=== PATIENT | male | born 1955 | race Caucasian/White ===

== ENCOUNTER → 2016-04-04 | Outpatient (CLI) | payer OTHER ==
[~2016-04-04] MED LIST: HYZAAR 50-12.1 UDTAB PO; NORCO 325 MG-51 TAB PO; PRILOTC PO; SYNTHROID0.05 MG/TA PO; ZYLOPRIM 300MG300 MG PO
== END ==
LOC: COL.RAD 09:45
DX: K76.0 Fatty (change of) liver, not elsewhere classified (principal); R79.89 Other specified abnormal findings of blood chemistry; M54.6 Pain in thoracic spine

== ENCOUNTER → 2016-04-14 | Outpatient (CLI) | payer OTHER | LOC: COL.RAD 10:18 | DX: R10.11 Right upper quadrant pain (principal); K82.8 Other specified diseases of gallbladder | CPT/HCPCS: A9537; J2805 ==

== ENCOUNTER → 2016-08-03 | Day surgery (SDC) | payer OTHER ==
[~2016-08-03] VITALS: Ht 175.3 cm; Wt 78.1 kg
[2016-08-03] VITALS (9 sets, daily range): BP systolic 123–144; BP diastolic 72–91; PULSE 53–80; TEMP 97.8–98
== END ==
LOC: SDCO 05:43 → JCC 09-07 19:49 → SDCO 09-07 19:49
DX: K40.90 Unilateral inguinal hernia, without obstruction or gangrene, not specified as recurrent (principal); I10 Essential (primary) hypertension; E05.90 Thyrotoxicosis, unspecified without thyrotoxic crisis or storm; N40.0 Benign prostatic hyperplasia without lower urinary tract symptoms; I49.9 Cardiac arrhythmia, unspecified
CPT/HCPCS: A4315; C1781; J0690; J1100; J1885; J2405; J2704; J7120

== ENCOUNTER → 2017-12-12 | Outpatient (CLI) | payer OTHER ==
[~2017-12-12] VITALS: Ht 175.4 cm; Wt 79.1 kg
[~2017-12-12] MED LIST changes: +B COMPLEX #11 TAB PO; +COZAAR 50MG50 MG/TAB PO; +MULTIPLE VITAMI1 CAP PO; +SYNTHROID0.075 MG/T PO
[2017-12-12 06:46] VITALS: BP 152/93; PULSE 76
[2017-12-12 07:46] VITALS: BP 146/91; PULSE 67
[2017-12-12 08:25] VITALS: BP 134/82; PULSE 98
[2017-12-12 08:27] VITALS: BP 136/81; PULSE 89
[2017-12-12 08:29] VITALS: BP 139/88; PULSE 89
== END ==
LOC: COL.CARD 06:24
DX: M54.6 Pain in thoracic spine (principal)
CPT/HCPCS: A9502; J2785

== ENCOUNTER 2018-01-02 10:12 | Day surgery (SDC) | payer OTHER ==
[2018-01-02] VITALS (11 sets, daily range): BP systolic 136–158; BP diastolic 88–107; PULSE 57–79; TEMP 98.2
[~2018-01-02] VITALS: Ht 175.5 cm; Wt 80.5 kg
[2018-01-02] MEDS ORDERED: COREG 3.123.125 MG/T PO (10:19)
[2018-01-02] MEDS ORDERED: IMDUR 30MG30 MG/TAB PO (10:20)
[2018-01-02] MEDS ORDERED: LIPITOR 40MG TA40 MG PO (10:21)
[2018-01-02] MEDS ORDERED: ASPIRIN E.C. 8181 MG PO (10:21)
[2018-01-02] MEDS ORDERED: ELOCON45GOINT TOP (10:23)
[2018-01-02] MEDS ORDERED: NITROSTAT0.4 MG/TAB SL (10:24)
[2018-01-02 11:16] LABS: HEMATOCRIT 43.4 % (42.0-52.0); HEMOGLOBIN 14.7 g/dl (13.5-18.0); MEAN CELL VOLUME 98 fl (80.0-100.0); MEAN CORPUSCULAR HEMOGLOBIN 33 pg (27.0-31.0); MEAN CORPUSCULAR HGB CONC 34 g/dl (33.0-37.0); MEAN PLATELET VOLUME 10.4 fl (7.4-10.4); PLATELET COUNT 226 K/mm3 (130-400); RED BLOOD COUNT 4.43 M/mm3 (4.20-5.60)
[2018-01-02 11:19] LABS: PROTHROMBIN TIME 10.9 SECONDS (9.7-12.8)
[2018-01-02 11:33] LABS: CALCIUM 8.9 mg/dL (8.4-10.2); CREATININE, serum 0.95 mg/dL (0.66-1.25); POTASSIUM 4.1 mmol/L (3.4-5.0)
== END 2018-01-02 17:04 | disposition home or self-care (01) ==
LOC: COL.CAR 10:12
PROVIDERS: Internal Medicine Cardiovascular Disease
DX: I25.10 Atherosclerotic heart disease of native coronary artery without angina pectoris (principal); I11.0 Hypertensive heart disease with heart failure; I50.9 Heart failure, unspecified; E78.2 Mixed hyperlipidemia; Z79.899 Other long term (current) drug therapy; Z79.82 Long term (current) use of aspirin
CPT/HCPCS: J1644; J2250; J3010; Q9967

== ENCOUNTER 2018-09-21 21:10 | Emergency (ER) | payer MEDICARE, OTHER ==
[~2018-09-21] VITALS: Ht 172.7 cm; Wt 81.8 kg
[~2018-09-21 21:10] MED LIST changes: +ASPIRIN E.C. 8181 MG PO; +COREG 3.123.125 MG/T PO; +ELOCON45GOINT TOP; +IMDUR 30MG30 MG/TAB PO; +LIPITOR 40MG TA40 MG PO; +NITROSTAT0.4 MG/TAB SL
[2018-09-21 21:22] VITALS: TEMP 97.1
[2018-09-21 21:41] LABS: BASO % 0.6 % (0.0-2.0); EOS % 0.4 % (0-4.0); GRAN # 4.9 (1.4-6.5); GRAN % 72.1 % (42.2-75.2); HEMOGLOBIN 12.3 g/dl (13.5-18.0); LYMPH # 1.1 (1.2-3.4); LYMPH % 15.6 % (20.0-51.0); MEAN CELL VOLUME 95 fl (80.0-100.0); MEAN CORPUSCULAR HEMOGLOBIN 33 pg (27.0-31.0); MEAN CORPUSCULAR HGB CONC 35 g/dl (33.0-37.0); MEAN PLATELET VOLUME 10.1 fl (7.4-10.4); MONO # 0.7 (0.1-0.6); MONO % 10.6 % (1.7-9.3); PLATELET COUNT 223 K/mm3 (130-400); RED BLOOD COUNT 3.74 M/mm3 (4.20-5.60); REDCELL DISTRIBUTION WIDTH-CV 12.8 % (11.5-14.5)
[2018-09-21 21:42] LABS: HEMATOCRIT 35.5 % (42.0-52.0)
[2018-09-21 21:48] LABS: ALANINE AMINOTRANSFERASE 242 U/L (21-72); ALBUMIN 4.4 gm/dL (3.5-5.0); ALKALINE PHOSPHATASE 155 U/L (50-136); ANION GAP 11 mmol/L (7-16); AST,SGOT 446 U/L (15-37); BILIRUBIN,TOTAL 1.8 mg/dL (0.0-1.0); BLOOD UREA NITROGEN 19 mg/dL (9-20); CALCIUM 9.5 mg/dL (8.4-10.2); CARBON DIOXIDE 20 mmol/L (22-30); CHLORIDE 108 mmol/L (98-107); CREATININE, serum 1.29 (0.66-1.25); GLUCOSE 112 mg/dL (74-106); LIPASE 260 U/L (23-300); POTASSIUM 4.4 mmol/L (3.4-5.0); SODIUM 140 mmol/L (137-145); TOTAL PROTEIN 8.1 gm/dL (6.4-8.2)
[2018-09-21 22:00] LABS: TROPONIN-I < 0.012 ng/mL (0.000-0.035)
[2018-09-22] MEDS ORDERED: NORCO 325 MG-51 TAB PO (01:43)
[2018-09-22 02:13] VITALS: BP 128/75; PULSE 96
== END 2018-09-22 02:00 | disposition home or self-care (01) ==
LOC: COL.ER 21:10
PROVIDERS: Emergency Medicine
DX: K70.10 Alcoholic hepatitis without ascites (principal); I25.10 Atherosclerotic heart disease of native coronary artery without angina pectoris; Z90.49 Acquired absence of other specified parts of digestive tract; Z79.82 Long term (current) use of aspirin
CPT/HCPCS: C9113; J3010; J7030; Q9967

== ENCOUNTER 2019-04-15 14:58 | Outpatient (RCR) | payer MEDICARE, OTHER ==
[2019-04-15] MEDS ORDERED: INSPRA25 MG PO (17:07)
[2019-04-15] MEDS ORDERED: PROTONIX 40MG T40 MG PO (19:15)
[2019-04-15] MEDS ORDERED: COREG 25MG25 MG/TAB PO (19:16)
[2019-04-15] MEDS ORDERED: PLAVIX 75MG TAB75 MG PO (19:17)
[2019-04-15] MEDS ORDERED: ALDACTONE 25MG25 M1 PO (19:17)
[2019-04-15] MEDS ORDERED: IMODIUM A-D2 MG PO (21:26)
[2019-04-17] MEDS ORDERED: IMDUR 60MG60 MG/TAB PO (14:25)
[2019-04-17] MEDS ORDERED: RANEXA 500MG T500 MG PO (14:25)
== END 2019-05-06 | disposition home or self-care (01) ==
LOC: COL.CR
DX: Z48.812 Encounter for surgical aftercare following surgery on the circulatory system (principal); Z95.5 Presence of coronary angioplasty implant and graft

== ENCOUNTER 2019-04-15 16:14 | Observation (INO) | payer MEDICARE, OTHER ==
[~2019-04-15] VITALS: Ht 172.7 cm; Wt 85.4 kg
[2019-04-15 16:43] LABS: BASO % 0.5 % (0.0-2.0); EOS % 0.3 % (0-4.0); GRAN # 5.4 (1.4-6.5); GRAN % 73.9 % (42.2-75.2); HEMATOCRIT 37.7 % (42.0-52.0); HEMOGLOBIN 12.5 g/dl (13.5-18.0); LYMPH % 13.6 % (20.0-51.0); MEAN CELL VOLUME 96 fl (80.0-100.0); MEAN CORPUSCULAR HEMOGLOBIN 32 pg (27.0-31.0); MEAN CORPUSCULAR HGB CONC 33 g/dl (33.0-37.0); MEAN PLATELET VOLUME 10.2 fl (7.4-10.4); MONO # 0.8 (0.1-0.6); MONO % 10.7 % (1.7-9.3); PLATELET COUNT 256 K/mm3 (130-400); RED BLOOD COUNT 3.94 M/mm3 (4.20-5.60); REDCELL DISTRIBUTION WIDTH-CV 12.4 % (11.5-14.5)
[2019-04-15 16:51] LABS: PARTIAL THROMBOPLASTIN TIME 31.1 SECONDS (26.0-37.0)
[2019-04-15 16:57] LABS: ALANINE AMINOTRANSFERASE 179 U/L (21-72); ALBUMIN 4.4 gm/dL (3.5-5.0); ALKALINE PHOSPHATASE 188 U/L (50-136); ANION GAP 10 mmol/L (7-16); AST,SGOT 261 U/L (15-37); BILIRUBIN,TOTAL 2.2 mg/dL (0.0-1.0); BLOOD UREA NITROGEN 17 mg/dL (9-20); CALCIUM 9.3 mg/dL (8.4-10.2); CARBON DIOXIDE 25 mmol/L (22-30); CHLORIDE 105 mmol/L (98-107); CREATININE, serum 1.03 (0.66-1.25); GLUCOSE 135 mg/dL (74-106); POTASSIUM 4.1 mmol/L (3.4-5.0); SODIUM 139 mmol/L (137-145); TOTAL PROTEIN 7.7 gm/dL (6.4-8.2)
[2019-04-15] MEDS ORDERED: INSPRA25 MG PO (17:07)
[2019-04-15 17:09] LABS: TROPONIN-I < 0.012 ng/mL (0.000-0.035)
[2019-04-15] MEDS ORDERED: PROTONIX 40MG T40 MG PO (19:15)
[2019-04-15] MEDS ORDERED: COREG 25MG25 MG/TAB PO (19:16)
[2019-04-15] MEDS ORDERED: ALDACTONE 25MG25 M1 PO (19:17)
[2019-04-15] MEDS ORDERED: PLAVIX 75MG TAB75 MG PO (19:17)
[2019-04-15 20:45] VITALS: BP 111/68; PULSE 64; TEMP 98.2
[2019-04-15 21:09] LABS: ALCOHOL(ethanol),MEDICAL < 10 mg/dL
[2019-04-15] MEDS ORDERED: IMODIUM A-D2 MG PO (21:26)
--- NOTE | 2019-04-15 21:30 | NUR ---
Admitted to medical floor from ER with DX chest pain-- states pain is much improved- states still has just a very little pressure /ache feeling mid chest 04/05- VSS, heparin drip at 10cc/hr,,IV fluids at 30CC/HR- Will call for assistance up if needed- VSS, NPO after MN- pt aware
[2019-04-15 23:24] VITALS: BP 101/62; PULSE 72; TEMP 98
[2019-04-16] VITALS (7 sets, daily range): BP systolic 101–130; BP diastolic 57–70; PULSE 54–69; TEMP 97.3–98.6
--- NOTE | 2019-04-16 02:00 | NUR ---
Did get hte doses of INspra from pharmacy- called Zay DU about giving it now since its late or waiting till the AM-- states ok to wait till the morning dose-
--- NOTE | 2019-04-16 05:00 | NUR ---
Quiet night- was given Morphine IV around 0340 for mid chest pain 06/03-not really pain he states just uncomfortable - Morphine was effective-has been sleeping since- Heparin drip continues at 10cc/hr, NPO
[2019-04-16 06:50] LABS: BASO % 0.5 % (0.0-2.0); EOS % 0.5 % (0-4.0); GRAN % 69.3 % (42.2-75.2); HEMATOCRIT 34.1 % (42.0-52.0); HEMOGLOBIN 11.2 g/dl (13.5-18.0); LYMPH % 16.5 % (20.0-51.0); MEAN CELL VOLUME 97 fl (80.0-100.0); MEAN CORPUSCULAR HEMOGLOBIN 32 pg (27.0-31.0); MEAN CORPUSCULAR HGB CONC 33 g/dl (33.0-37.0); MEAN PLATELET VOLUME 10.6 fl (7.4-10.4); MONO # 0.7 (0.1-0.6); MONO % 12.2 % (1.7-9.3); PLATELET COUNT 207 K/mm3 (130-400); REDCELL DISTRIBUTION WIDTH-CV 12.4 % (11.5-14.5)
[2019-04-16 06:59] LABS: BILIRUBIN,TOTAL 3.2 mg/dL (0.0-1.0); CALCIUM 8.8 mg/dL (8.4-10.2); CHOLESTEROL RISK RATIO 2.1; CREATININE, serum 0.87 (0.66-1.25); POTASSIUM 3.6 mmol/L (3.4-5.0); TOTAL PROTEIN 7.1 gm/dL (6.4-8.2)
[2019-04-16 11:12] LABS: BILIRUBIN,DIRECT 2.3 mg/dL (0.0-0.4)
--- NOTE | 2019-04-16 11:44 | NUR ---
SEE MERGE FOR MEDICATION ADMINISTRATION TIMES AND INTRA AND POST SEDATION ASSESSMENTS.
--- NOTE | 2019-04-16 12:28 | NUR ---
bedside hand off report to lamont fowler. TR band to R wrist. hemostasis maintained. TR band with 12cc in the band. Radial pulse 2+, cap refill less than 3 seconds. at bedside with patient at this time. pt is alert and oriented.
--- NOTE | 2019-04-16 14:37 | NUR ---
REED met with the patient, his ex- (Chhaya), and son (Ihsan, ph#[phone]) to discuss discharge plan. The patient lives alone in [place]. He reports independence with ADLs and does not have any DME. The patient's PCP is Dr. Que Katz and he receives his medications at the [facility] in [facility]. He reports no difficulties obtaining his meds. The patient does not have advanced directives completed, but he was interested in obtaining a form for DPOA-HC. REED provided. The patient plans to return home upon discharge. No additional needs at this time.
--- NOTE | 2019-04-16 16:31 | NUR ---
Patient returned from procedure, is resting in bed, TR band in place and inflated. There is no leakage noted under band. Is drowsy but alert and oriented, is at bedside. Denies pain. Does wish for vital sign equipment be removed, explained to patient that it was necessary to keep equipment in place unitl post operative time was complete. He agreed.
--- NOTE | 2019-04-16 18:40 | NUR ---
Patient has complained of upper abdomnial pain, did speak with Dr. Elkins regarding this and he spoke with patient regarding pain management and patient declined to make a change. Did give dose of protonix as directed by Dr. Elkins. Dr. Elkins is to get in touch with GI for eval.
--- NOTE | 2019-04-16 21:00 | NUR ---
Resting in bed. Assessment complete. Right lower lobe crackles otherwise clear. Heart sounds normal. Bowels active x4- ABD firm and round. Pulses strong throughout. No edema noted. INT left AC without complications. IV right AC infusing without complications-Patient has order for NS and 1/2 NS- attempted to contact Meredith CHNADRA for order clarification, will call back. Patient rating pain 3/10 at this time in ABD. Requested PRN morphine. Provided to patient. Denies other needs. Call light in reach.
[2019-04-17] VITALS: BP 125/68; PULSE 79; TEMP 98.1
--- NOTE | 2019-04-17 | NUR ---
Patient had orders for NS at 30ml/hr and 1/2 NS at 100ml/hr. Spoke with Meredith CHANDRA for order clarification. Per Meredith discontinue both. Patient to saline lock at this time.
--- NOTE | 2019-04-17 00:47 | NUR ---
Patient ambulating in hallway. Refused nitro pace at this time. Reports "I am feeling pretty good, and I dont think this has anything to do with my heart." Educated patient to report any chest pain or change in symptoms. Denies other needs at this time. Call light in reach.
--- NOTE | 2019-04-17 00:57 | NUR ---
Patient had 900 ml of dark yellow, clear urine at this time.
--- NOTE | 2019-04-17 02:28 | NUR ---
Resting in bed asleep. Call light in reach.
[2019-04-17 04:00] VITALS: BP 133/73; PULSE 80; TEMP 97.8
--- NOTE | 2019-04-17 04:56 | NUR ---
Resting in bed. Denies pain at this time. Call light in reach.
--- NOTE | 2019-04-17 06:22 | NUR ---
Patient required x1 dose of morphine for pain. Otherwise uneventful night. Requesting to be discharged this AM as pain has resolved.
[2019-04-17 06:43] LABS: BASO % 0.6 % (0.0-2.0); EOS % 0.6 % (0-4.0); GRAN # 3.6 (1.4-6.5); GRAN % 69.4 % (42.2-75.2); HEMOGLOBIN 11.8 g/dl (13.5-18.0); LYMPH # 0.6 (1.2-3.4); MEAN CELL VOLUME 97 fl (80.0-100.0); MEAN CORPUSCULAR HEMOGLOBIN 32 pg (27.0-31.0); MEAN CORPUSCULAR HGB CONC 33 g/dl (33.0-37.0); MEAN PLATELET VOLUME 10.7 fl (7.4-10.4); MONO # 0.9 (0.1-0.6); MONO % 16.4 % (1.7-9.3); PLATELET COUNT 188 K/mm3 (130-400); RED BLOOD COUNT 3.67 M/mm3 (4.20-5.60); REDCELL DISTRIBUTION WIDTH-CV 12.4 % (11.5-14.5)
[2019-04-17 06:58] LABS: ALBUMIN 3.9 gm/dL (3.5-5.0); CALCIUM 8.6 mg/dL (8.4-10.2); CREATININE, serum 0.87 (0.66-1.25); POTASSIUM 3.6 mmol/L (3.4-5.0)
[2019-04-17 07:04] LABS: HEMATOCRIT 35.6 % (42.0-52.0)
--- NOTE | 2019-04-17 07:12 | NUR ---
Report given to ARLET Mccormack
[2019-04-17 07:26] VITALS: BP 120/69; PULSE 75; TEMP 99.1
[2019-04-17 10:23] LABS: PROTHROMBIN TIME 11.6 SECONDS (9.7-12.8)
[2019-04-17 11:07] VITALS: BP 103/60; PULSE 69; TEMP 99.1
[2019-04-17] MEDS ORDERED: IMDUR 60MG60 MG/TAB PO (14:25)
[2019-04-17] MEDS ORDERED: RANEXA 500MG T500 MG PO (14:25)
--- NOTE | 2019-04-17 18:06 | NUR ---
PATIENT DC TO HOME VIA PRIVATE VEHILCE ACCOMPANIED BY SON @ 1610. LEFT UNIT AMBULATORY. PRINTED DC INSTRUCTIONS TO INCLUDE FOLLOW UP, MEDICATIONS, HOSPITAL DIAGNOSIS REVIEWED WITH PATIENT. NO QUESTIONS OR CONCERNS AT END OF REVIEW
[2019-04-17 20:09] LABS: IRON,SERUM 49 ug/dL (35-150)
[2019-04-17 20:17] LABS: TOTAL IRON BINDING CAPACITY 292 ug/dL (261-462)
[2019-04-18 15:24] LABS: HEPATITIS B CORE AB,TOTAL Negative (()); HEPATITIS B SURFACE ANTIBODY <2.0 (()); HEPATITIS B SURFACE ANTIGEN Negative (Negative); HEPATITIS C VIRUS ANTIBODY Negative (Negative)
[2019-04-19 01:23] LABS: HEPATITIS AB (HAV) IGG INDEX 0.57 Index (<=1.00)
== END 2019-04-17 16:10 | disposition home or self-care (01) ==
LOC: COL.ER 16:14 → MEDICAL 19:36
PROVIDERS: Emergency Medicine; Internal Medicine Gastroenterology; Nurse Practitioner Family; ADMIT Internal Medicine
DX: I25.10 Atherosclerotic heart disease of native coronary artery without angina pectoris (principal); E78.5 Hyperlipidemia, unspecified; I11.0 Hypertensive heart disease with heart failure; I50.40 Unspecified combined systolic (congestive) and diastolic (congestive) heart failure; E03.9 Hypothyroidism, unspecified; E80.6 Other disorders of bilirubin metabolism; K86.9 Disease of pancreas, unspecified; K21.9 Gastro-esophageal reflux disease without esophagitis; D64.9 Anemia, unspecified; I25.2 Old myocardial infarction; I34.0 Nonrheumatic mitral (valve) insufficiency; Z95.5 Presence of coronary angioplasty implant and graft; Z79.82 Long term (current) use of aspirin; Z79.02 Long term (current) use of antithrombotics/antiplatelets; Z88.1 Allergy status to other antibiotic agents; Z90.49 Acquired absence of other specified parts of digestive tract; Z82.49 Family history of ischemic heart disease and other diseases of the circulatory system
CPT/HCPCS: C9113; G0378; J1644; J2250; J2270; J2405; J3010; J7030; Q9967

== ENCOUNTER → 2019-04-22 | Outpatient (CLI) | payer MEDICARE ==
[~2019-04-22] MED LIST changes: +ALDACTONE 25MG25 M1 PO; +COREG 25MG25 MG/TAB PO; +IMDUR 60MG60 MG/TAB PO; +IMODIUM A-D2 MG PO; +INSPRA25 MG PO; +PLAVIX 75MG TAB75 MG PO; +PROTONIX 40MG T40 MG PO; +RANEXA 500MG T500 MG PO
== END ==
LOC: COL.RAD 09:40
DX: K76.0 Fatty (change of) liver, not elsewhere classified (principal)

== ENCOUNTER 2019-05-06 15:25 | Outpatient (RCR) | payer MEDICARE | END 2019-05-08 05:59 | disposition home or self-care (01) | LOC: COL.CR 15:25 | DX: Z48.812 Encounter for surgical aftercare following surgery on the circulatory system (principal); Z95.5 Presence of coronary angioplasty implant and graft ==

== ENCOUNTER 2019-06-10 15:45 | Outpatient (RCR) | payer SELFPAY | END 2019-08-06 | disposition home or self-care (01) | LOC: COL.CR | DX: Z02.89 Encounter for other administrative examinations (principal) ==

== ENCOUNTER 2020-07-28 13:13 | Emergency (ER) | payer MEDICARE ==
[~2020-07-28] VITALS: Ht 172.7 cm; Wt 85.5 kg
[2020-07-28 13:28] VITALS: TEMP 98.6
[2020-07-28 14:04] LABS: HEMATOCRIT 39.2 % (42.0-52.0); HEMOGLOBIN 13.3 g/dl (13.5-18.0); MEAN CELL VOLUME 93 fl (80.0-100.0); MEAN CORPUSCULAR HEMOGLOBIN 31 pg (27.0-31.0); MEAN CORPUSCULAR HGB CONC 34 g/dl (33.0-37.0); MEAN PLATELET VOLUME 9.6 fl (7.4-10.4); PLATELET COUNT 300 K/mm3 (130-400); RED BLOOD COUNT 4.24 M/mm3 (4.20-5.60); REDCELL DISTRIBUTION WIDTH-CV 12.8 % (11.5-14.5)
[2020-07-28 14:05] LABS: COLLECTION METHOD CATHETER
[2020-07-28 14:13] LABS: ALANINE AMINOTRANSFERASE 518 U/L (4-49); ALBUMIN 4.5 gm/dL (3.5-5.0); ALKALINE PHOSPHATASE 616 U/L (50-136); ANION GAP 12 mmol/L (7-16); AST,SGOT 312 U/L (15-37); BILIRUBIN,TOTAL 6.4 mg/dL (0.0-1.0); BLOOD UREA NITROGEN 19 mg/dL (9-20); CALCIUM 9.4 mg/dL (8.4-10.2); CARBON DIOXIDE 21 mmol/L (22-30); CHLORIDE 105 mmol/L (98-107); CREATININE, serum 1.35 (0.66-1.25); GLUCOSE 116 mg/dL (74-106); LIPASE 86 U/L (23-300); POTASSIUM 3.9 mmol/L (3.4-5.0); SODIUM 138 mmol/L (137-145)
[2020-07-28 14:30] LABS: TROPONIN-I < 0.012 ng/mL (0.000-0.035)
[2020-07-28 14:32] LABS: MUCOUS Present /lpf; PH 5 (5-8); SQUAMOUS EPITHELIAL 0-2 /hpf; URINE APPEARANCE Hazy; URINE BACTERIA Rare /hpf; URINE BILIRUBIN Positive (NEGATIVE); URINE BLOOD Negative (NEGATIVE); URINE COLOR Amber; URINE GLUCOSE Negative (NEGATIVE); URINE KETONE Trace (NEGATIVE); URINE LEUKOCYTE ESTERASE Negative (NEGATIVE); URINE NITRATE Negative (NEGATIVE); URINE PROTEIN(semi-quant) 1+ (NEGATIVE); URINE RBC 0-2 /hpf; URINE UROBILINOGEN >=4.0 mg/dL (NEGATIVE)
[2020-07-28 14:58] LABS: BAND 33 % (0-10); LYMPHOCYTE 1 % (20.0-51.0); NEUTROPHILS 63 % (42.0-75.2)
[2020-07-28] MEDS ORDERED: COREG 25MG25 MG/TAB PO ×2 (15:12→15:13)
[2020-07-28] MEDS ORDERED: LIPITOR 40MG TA40 MG PO (15:12)
[2020-07-28] MEDS ORDERED: IMDUR 30MG30 MG/TAB PO (15:13)
[2020-07-28] MEDS ORDERED: ONE-A-DAY ESSE1 EACH PO (15:13)
[2020-07-28] MEDS ORDERED: NORCO 325 MG-51 TAB PO (15:14)
[2020-07-28 19:48] VITALS: BP 142/78; PULSE 115
== END 2020-07-28 19:50 | disposition short-term general hospital (02) ==
LOC: COL.ER 13:13
PROVIDERS: Emergency Medicine
DX: R79.89 Other specified abnormal findings of blood chemistry (principal); E80.6 Other disorders of bilirubin metabolism; K86.9 Disease of pancreas, unspecified; R10.84 Generalized abdominal pain; R00.0 Tachycardia, unspecified; I25.10 Atherosclerotic heart disease of native coronary artery without angina pectoris; I10 Essential (primary) hypertension; Z88.1 Allergy status to other antibiotic agents; Z90.49 Acquired absence of other specified parts of digestive tract; Z79.82 Long term (current) use of aspirin; Z79.02 Long term (current) use of antithrombotics/antiplatelets; Z85.07 Personal history of malignant neoplasm of pancreas; Z79.899 Other long term (current) drug therapy
CPT/HCPCS: J2543; J3370; J7030; J7050; Q9967

== ENCOUNTER 2020-09-02 09:36 | Day surgery (SDC) | payer MEDICARE ==
[~2020-09-02] VITALS: Ht 172.8 cm; Wt 77.1 kg
[2020-09-02] VITALS (9 sets, daily range): BP systolic 90–129; BP diastolic 61–76; PULSE 50–77; TEMP 63–77.1
[~2020-09-02 09:36] MED LIST changes: +ONE-A-DAY ESSE1 EACH PO
[2020-09-02 10:53] LABS: MEAN CELL VOLUME 93 fl (80.0-100.0); MEAN CORPUSCULAR HEMOGLOBIN 32 pg (27.0-31.0); MEAN CORPUSCULAR HGB CONC 34 g/dl (33.0-37.0); MEAN PLATELET VOLUME 10.8 fl (7.4-10.4); PLATELET COUNT 222 K/mm3 (130-400); REDCELL DISTRIBUTION WIDTH-CV 13.1 % (11.5-14.5)
[2020-09-02 10:59] LABS: HEMATOCRIT 35.2 % (42.0-52.0); INR 1.1 (0.8-3.0); PROTHROMBIN TIME 12.1 SECONDS (9.7-12.8)
[2020-09-02 11:01] LABS: CALCIUM 8.7 mg/dL (8.4-10.2); CREATININE, serum 0.91 (0.66-1.25); POTASSIUM 3.8 mmol/L (3.4-5.0)
[2020-09-02 11:02] LABS: PARTIAL THROMBOPLASTIN TIME 33.4 SECONDS (26.0-37.0)
[2020-09-02] MEDS ORDERED: B COMPLEX #11 TA1 PO (11:07)
--- NOTE | 2020-09-02 14:45 | NUR ---
pt to eu 15 via bed from cardiac cath lab technologist, awake and alert. Radial band on, site dry with no swelling. call light in reach, no c/o or concerns at this time
[2020-09-02] MEDS ORDERED: COREG 25MG25 MG/TAB PO (15:04)
[2020-09-02] MEDS ORDERED: ASPIRIN E.C. 8181 MG PO (15:05)
--- NOTE | 2020-09-02 15:45 | NUR ---
offered snack or sandwhich, declined at this time, takes water, no c/o or changes in assessment
--- NOTE | 2020-09-02 16:19 | NUR ---
reviewed discharge inst. with pt on care of site, precautions, activity, followup and changes in medication dosages of coreg with verbal understanding. sits up in bed, no requests or c/o
--- NOTE | 2020-09-02 16:50 | NUR ---
RELEASED 2CC OF AIR FROM BAND, NO BLEEDING NOTED
--- NOTE | 2020-09-02 17:25 | NUR ---
Dressing to right wrist observed clean,dry,and soft to touch.INt removed,catheter tip intact.
--- NOTE | 2020-09-02 17:30 | NUR ---
Pt escorted out via wheelchair by Mis Montenegro.
== END 2020-09-02 17:48 | disposition home or self-care (01) ==
LOC: COL.CAR 09:36
PROVIDERS: Internal Medicine Cardiovascular Disease
DX: I25.10 Atherosclerotic heart disease of native coronary artery without angina pectoris (principal); R94.39 Abnormal result of other cardiovascular function study
CPT/HCPCS: C1769; J1644; J2250; J3010; Q9967

== ENCOUNTER 2021-01-05 13:16 | Inpatient (IN) | payer MEDICARE ==
[~2021-01-05] VITALS: Ht 172.7 cm; Wt 87.8 kg
[2021-01-05] VITALS (23 sets, daily range): BP systolic 112; BP diastolic 68; PULSE 89; TEMP 97.9; O2SAT 88–92
[~2021-01-05 13:16] MED LIST changes: +B COMPLEX #11 TA1 PO
[2021-01-05 14:07] LABS: BASO # 0.1 K/mm3 (0.0-0.2); BASO % 0.5 % (0.0-2.0); GRAN # 8.1 K/mm3 (1.4-6.5); GRAN % 74.2 % (42.2-75.2); HEMOGLOBIN 11.8 g/dl (13.5-18.0); LYMPH # 1.3 K/mm3 (1.2-3.4); LYMPH % 12.2 % (20.0-51.0); MEAN CELL VOLUME 93 fl (80.0-100.0); MEAN CORPUSCULAR HEMOGLOBIN 31 pg (27.0-31.0); MEAN CORPUSCULAR HGB CONC 33 g/dl (33.0-37.0); MEAN PLATELET VOLUME 10.5 fl (7.4-10.4); MONO # 1.4 K/mm3 (0.1-0.6); MONO % 12.4 % (1.7-9.3); PLATELET COUNT 250 K/mm3 (130-400); RED BLOOD COUNT 3.81 M/mm3 (4.20-5.60); REDCELL DISTRIBUTION WIDTH-CV 14.2 % (11.5-14.5)
[2021-01-05 14:10] LABS: HEMATOCRIT 35.3 % (42.0-52.0)
[2021-01-05 14:26] LABS: ALBUMIN 3.5 gm/dL (3.4-4.8); BILIRUBIN,TOTAL 1.5 mg/dL (0.2-1.2); CALCIUM 9.2 mg/dL (8.4-10.2); CREATININE, serum 1.66 mg/dL (0.72-1.25); TOTAL PROTEIN 7.3 gm/dL (6.2-8.1)
[2021-01-05 17:30] LABS: ARTERIAL BLD GAS TCO2 CT 18.1; ARTERIAL BLOOD GAS BASE EXCESS -6.5 (-2-2); ARTERIAL BLOOD GAS HCO3 17.2 meq/L (22-26); ARTERIAL BLOOD GAS PO2 49.2 mmHg (80-100); ARTERIAL BLOOD GAS pH 7.39 (7.35-7.45)
[2021-01-05 17:37] LABS: INR 1.2 (0.8-3.0); PROTHROMBIN TIME 13.7 SECONDS (9.7-12.8)
[2021-01-05 17:46] LABS: TSH w REFLEX 2.118 uIU/mL (0.350-4.940)
[2021-01-05] MEDS ORDERED: B COMPLEX #11 TA1 PO (23:55)
[2021-01-05] MEDS ORDERED: COREG 25MG25 MG/TAB PO ×2 (23:57→23:58)
[2021-01-06] VITALS (696 sets, daily range): BP systolic 95–109; BP diastolic 58–77; PULSE 82–93; TEMP 97.7–100.4; O2SAT 86–100
--- NOTE | 2021-01-06 00:30 | NUR ---
2245: Report received from ER nurse ARLET Rhodes. Reported patient refusing bipap and is current on 15 liters oxymask with saturations in low 90s with shortness of breath. 2251: Updated Lyndsey GONSALEZ regarding report received from ER nurse. Obtained orders for Airvo and ABG. Respiratory therapy updated regarding plan. 2316: Patient arrived to ICU 8. Patient is alert and orientated. Saturations 87-90% on 15 liters oxymask. Respiratory notified of patient arrival. Patient bases are coarse. Reporting shortness of air with pain while deep breathing. Respiratory rate 33. 2325: Patient placed on airvo at 65% and 40 liters. Patient has a productive cough with blood sputum. 2330: Lyndsey GONSALEZ updated regarding bloody sputum and respiratory status. Will be down to see patient. 2332: Lyndsey GONSALEZ in room to see patient. Per Lyndsey GONSALEZ will give ativan to assist patient with anxiety while wearing airvo and lasix for fluid over load. 0002: Orders obtained for [facility] diet, ativan, and lasix. 0100: Patient airvo increased by respiratory to 45l 85% for 90% oxygen saturations. Patient resting in bed comfortably with no complaints of pain or anxiety.
[2021-01-06 04:25] LABS: ARTERIAL BLD GAS O2 SATURATION 89.8 % (92-100); ARTERIAL BLOOD GAS BASE EXCESS -7.5 (-2-2); ARTERIAL BLOOD GAS HCO3 15.2 meq/L (22-26); ARTERIAL BLOOD GAS PCO2 24.3 mmHg (35-45); ARTERIAL BLOOD GAS PO2 59.2 mmHg (80-100); ARTERIAL BLOOD GAS pH 7.42 (7.35-7.45)
[2021-01-06 05:07] LABS: HEMOGLOBIN 12.2 g/dl (13.5-18.0); MEAN CELL VOLUME 91 fl (80.0-100.0); MEAN CORPUSCULAR HEMOGLOBIN 31 pg (27.0-31.0); MEAN CORPUSCULAR HGB CONC 34 g/dl (33.0-37.0); MEAN PLATELET VOLUME 10.2 fl (7.4-10.4); PLATELET COUNT 251 K/mm3 (130-400); RED BLOOD COUNT 3.91 M/mm3 (4.20-5.60)
[2021-01-06 05:11] LABS: HEMATOCRIT 35.7 % (42.0-52.0)
[2021-01-06 05:21] LABS: CALCIUM 8.5 mg/dL (8.4-10.2); CREATININE, serum 1.4 mg/dL (0.72-1.25); POTASSIUM 3.7 mmol/L (3.5-4.5)
[2021-01-06 05:48] LABS: BAND 3 % (0-10); BASOPHIL 1 % (0-2); LYMPHOCYTE 10 % (20.0-51.0); NEUTROPHILS 72 % (42.0-75.2); PLATELET ESTIMATE NORMAL (NORMAL)
--- NOTE | 2021-01-06 07:00 | NUR ---
PT RESTING IN BED. PT HAS LEVO AND HEPARIN RUNNING. PT ON AIRVO. ALL VSS. SIOMARA CONTINUE TO MONTIOR.
--- NOTE | 2021-01-06 07:10 | NUR ---
Patient remained on levophed and heparin during the night. Tolerating airvo well. Denies needs this AM. Call light in reach.
--- NOTE | 2021-01-06 07:32 | NUR ---
Report given to Jocy NICE
--- NOTE | 2021-01-06 08:56 | NUR ---
Voice Writing Reporter met with patient to complete intake. Patient lives alone in [place]. His next of kin is his son, Ihsan ([phone]), who lives in [place]. Patient states he has no DME's at home and is fully independent. PCP is Dr. Que Katz and he obtains his medications from [facility] or [facility] with no difficulty. Patient reports he does not currently have an MPOA as he has "been meaning to do that" but he expressed that he doesn't want to do one "right now". Patient will continue to be followed and he was asked to let social work know if he chooses to complete POA.
--- NOTE | 2021-01-06 10:21 | NUR ---
Initial visit; Patient declined spiritual care. Care Associate wished patient well.
--- NOTE | 2021-01-06 14:21 | NUR ---
SPOKE WITH ANESTHESIA AND ECHO. PLAN FOR FRANCES TOMMORROW AT 0830.
[2021-01-06 14:56] LABS: COLLECTION METHOD CLEAN CATCH
[2021-01-06 15:04] LABS: PH 5 (5-8); SQUAMOUS EPITHELIAL None Seen /hpf; URINE APPEARANCE Clear; URINE BACTERIA None Seen /hpf; URINE BILIRUBIN Negative (NEGATIVE); URINE BLOOD Negative (NEGATIVE); URINE COLOR Yellow; URINE GLUCOSE Negative (NEGATIVE); URINE KETONE Negative (NEGATIVE); URINE LEUKOCYTE ESTERASE Negative (NEGATIVE); URINE NITRATE Negative (NEGATIVE); URINE PROTEIN(semi-quant) Negative (NEGATIVE); URINE RBC 0-2 /hpf; URINE UROBILINOGEN Negative (NEGATIVE)
[2021-01-07] VITALS (451 sets, daily range): BP systolic 90–122; BP diastolic 68–85; PULSE 89–103; TEMP 98–99; O2SAT 77–100
--- NOTE | 2021-01-07 04:06 | NUR ---
Patient anxious, RR 30, 92% saturations given ativan early per WALLACE Solorio. Also adding duonebs for wheezing.
--- NOTE | 2021-01-07 06:34 | NUR ---
Patient 83% after returning from BSC. Respiratory therapy contacted.
[2021-01-07 06:47] LABS: HEMOGLOBIN 12.3 g/dl (13.5-18.0); MEAN CELL VOLUME 93 fl (80.0-100.0); MEAN CORPUSCULAR HEMOGLOBIN 32 pg (27.0-31.0); MEAN CORPUSCULAR HGB CONC 34 g/dl (33.0-37.0); MEAN PLATELET VOLUME 10.7 fl (7.4-10.4); PLATELET COUNT 253 K/mm3 (130-400); RED BLOOD COUNT 3.89 M/mm3 (4.20-5.60); REDCELL DISTRIBUTION WIDTH-CV 13.7 % (11.5-14.5)
[2021-01-07 06:50] LABS: HEMATOCRIT 36.2 % (42.0-52.0)
[2021-01-07 07:05] LABS: ALBUMIN 2.9 gm/dL (3.4-4.8); BILIRUBIN,DIRECT 0.6 mg/dL (0.0-0.5); BILIRUBIN,TOTAL 1.1 mg/dL (0.2-1.2); CALCIUM 8.8 mg/dL (8.4-10.2); CREATININE, serum 1.28 mg/dL (0.72-1.25); POTASSIUM 3.4 mmol/L (3.5-4.5); TOTAL PROTEIN 7.3 gm/dL (6.2-8.1)
--- NOTE | 2021-01-07 07:14 | NUR ---
Respiratory increased patient airvo settings. Patient now at 91% saturations. Patient given ativan during night for anxiety. Resting in bed this AM. Call light in reach. Report given to Jocy NICE
[2021-01-07 07:21] LABS: BAND 14 % (0-10); BASOPHIL 2 % (0-2); LYMPHOCYTE 8 % (20.0-51.0); NEUTROPHILS 68 % (42.0-75.2); PLATELET ESTIMATE NORMAL (NORMAL)
--- NOTE | 2021-01-07 08:18 | NUR ---
CONCERNED FROM FRANCES AND SEDATION WITH HIGH OXYGEN NEEDS. MIAH NICE WITH CARDIOLOGY NOTIFIED AND WILL LET KNOW AND RE-EVALUATE.
[2021-01-07 08:57] LABS: ARTERIAL BLD GAS O2 SATURATION 93.7 % (92-100); ARTERIAL BLD GAS TCO2 CT 17.6; ARTERIAL BLOOD GAS BASE EXCESS -5.9 (-2-2); ARTERIAL BLOOD GAS HCO3 16.8 meq/L (22-26); ARTERIAL BLOOD GAS PCO2 25.6 mmHg (35-45); ARTERIAL BLOOD GAS PO2 68.1 mmHg (80-100); ARTERIAL BLOOD GAS pH 7.44 (7.35-7.45)
--- NOTE | 2021-01-07 09:00 | NUR ---
HEPARIN DRIP STOPPED PER . PT COUGHING UP BLOODY SPUTUM. WILL ORDER CTA TO RULE OUT PE.
--- NOTE | 2021-01-07 11:24 | NUR ---
[address] PT PLACED ON NON-REBREATHER. 1115 PT BACK TO ROOM. VSS. WILL CONTINUE TO [facility].
--- NOTE | 2021-01-07 13:04 | NUR ---
NOTIFIED OF CT RESULTS. CALLED THIS RN, WILL ORDER FOR RADIIOLOGY TO PERFORM A THORACENTESIS TODAY ON ONE SIDE, AND WILL PREFORM A THORACENTESIS ON THE OTHER SIDE TOMORROW. WILL ORDER LASIX THIS EVENING. PLACE SCD'S. FOLLOW UP ON POSSIBLE TRANSFER TO .
[2021-01-07 14:45] LABS: PLEURAL FLUID RBC 16000 /mm3 (0-0); PLEURAL FLUID WBC 414 /mm3
[2021-01-07 14:51] LABS: PLEURAL FLUID APPEARANCE HAZY; PLEURAL FLUID COLOR AMBER
--- NOTE | 2021-01-07 14:52 | NUR ---
QUAN CHANDRA WITH DR BERGER NOTIFIED OF TRANSFER TO [facility]
[2021-01-07 14:54] LABS: TOTAL PROTEIN,PLEURAL FLUID 2.6 gm/dL
--- NOTE | 2021-01-07 17:53 | NUR ---
4646-REPORT CALLED TO YOJANA NICE. ALL QUESTION ANSWERED. NEGATIVE COVID SWAB FAXED. 5095-PT TRANSFERED TO [facility] VIA [facility].
== END 2021-01-07 17:40 | disposition short-term general hospital (02) | DRG 871 ==
LOC: COL.ER 13:16 → ICU 16:34
PROVIDERS: Emergency Medicine; Internal Medicine Pulmonary Disease; Nurse Practitioner Primary Care; Student in an Organized Health Care Education/Training Program; Surgery; ADMIT Student in an Organized Health Care Education/Training Program
PROC: 02HV33Z Insertion of Infusion Device into Superior Vena Cava, Percutaneous Approach (ICD-10-PCS; principal; 2021-01-05)
PROC: 5A09357 Assistance with Respiratory Ventilation, Less than 24 Consecutive Hours, Continuous Positive Airway Pressure (ICD-10-PCS; 2021-01-05)
PROC: 0W9B3ZZ Drainage of Left Pleural Cavity, Percutaneous Approach (ICD-10-PCS; 2021-01-07)
DX: A41.9 Sepsis, unspecified organism (principal); J96.01 Acute respiratory failure with hypoxia; I50.43 Acute on chronic combined systolic (congestive) and diastolic (congestive) heart failure; N17.9 Acute kidney failure, unspecified; E87.2 Acidosis; R04.2 Hemoptysis; J90 Pleural effusion, not elsewhere classified; I25.5 Ischemic cardiomyopathy; Z20.822 Contact with and (suspected) exposure to COVID-19; I11.0 Hypertensive heart disease with heart failure; I34.1 Nonrheumatic mitral (valve) prolapse; E78.00 Pure hypercholesterolemia, unspecified; I25.10 Atherosclerotic heart disease of native coronary artery without angina pectoris; K70.10 Alcoholic hepatitis without ascites; F10.10 Alcohol abuse, uncomplicated; E03.9 Hypothyroidism, unspecified; K21.9 Gastro-esophageal reflux disease without esophagitis; D13.6 Benign neoplasm of pancreas; I27.20 Pulmonary hypertension, unspecified; D64.9 Anemia, unspecified; R05.3 Chronic cough; E86.0 Dehydration; E78.5 Hyperlipidemia, unspecified; Z79.02 Long term (current) use of antithrombotics/antiplatelets; Z79.891 Long term (current) use of opiate analgesic; Z79.82 Long term (current) use of aspirin; Z95.5 Presence of coronary angioplasty implant and graft; Z90.49 Acquired absence of other specified parts of digestive tract; Z88.1 Allergy status to other antibiotic agents
CPT/HCPCS: 99223-AI; 99233-AI; 99239; J1644; J1720; J1940; J2060; J2405; J2543; J2704; J3370; J7030; J7040; J7050; J7060; Q9967

== ENCOUNTER 2021-03-24 14:16 | Outpatient (RCR) | payer MEDICARE | END 2021-03-26 | disposition home or self-care (01) | LOC: COL.CR | DX: Z48.812 Encounter for surgical aftercare following surgery on the circulatory system (principal); Z95.2 Presence of prosthetic heart valve ==

== ENCOUNTER → 2021-04-26 | Outpatient (RCR) | payer MEDICARE | END | disposition home or self-care (01) | LOC: COL.CR | DX: Z48.812 Encounter for surgical aftercare following surgery on the circulatory system (principal); Z95.2 Presence of prosthetic heart valve ==

== ENCOUNTER 2021-05-12 15:42 | Outpatient (RCR) | payer MEDICARE | END 2021-05-14 14:29 | disposition home or self-care (01) | LOC: COL.CR 15:42 | DX: Z48.812 Encounter for surgical aftercare following surgery on the circulatory system (principal); Z95.2 Presence of prosthetic heart valve ==

== ENCOUNTER 2021-06-12 18:10 | Emergency (ER) | payer MEDICARE ==
[~2021-06-12] VITALS: Ht 172.7 cm; Wt 80.9 kg
[2021-06-12 18:34] VITALS: TEMP 101
[2021-06-12 19:11] LABS: BASO % 0.3 % (0.0-2.0); EOS % 0.1 % (0.0-4.0); GRAN # 12.3 K/mm3 (1.4-6.5); GRAN % 87.8 % (42.2-75.2); HEMATOCRIT 38.7 % (42.0-52.0); HEMOGLOBIN 12.7 g/dl (13.5-18.0); LYMPH # 0.5 K/mm3 (1.2-3.4); LYMPH % 3.4 % (20.0-51.0); MEAN CELL VOLUME 83 fl (80.0-100.0); MEAN CORPUSCULAR HEMOGLOBIN 27 pg (27-31); MEAN CORPUSCULAR HGB CONC 33 g/dl (33.0-37.0); MEAN PLATELET VOLUME 10.9 fl (7.4-10.4); MONO # 1.1 K/mm3 (0.1-0.6); MONO % 7.8 % (1.7-9.3); PLATELET COUNT 338 K/mm3 (130-400); RED BLOOD COUNT 4.64 M/mm3 (4.20-5.60); REDCELL DISTRIBUTION WIDTH-CV 17.6 % (11.5-14.5)
[2021-06-12 19:22] LABS: STREP SCREEN NEGATIVE
[2021-06-12 19:39] LABS: ALANINE AMINOTRANSFERASE 68 U/L (0-55); ALBUMIN 3.6 gm/dL (3.4-4.8); ALKALINE PHOSPHATASE 126 U/L (40-150); ANION GAP 14 mmol/L (7-16); AST,SGOT 32 U/L (5-34); BILIRUBIN,TOTAL 1.1 mg/dL (0.2-1.2); BLOOD UREA NITROGEN 10 mg/dL (8-26); CALCIUM 9.3 mg/dL (8.4-10.2); CARBON DIOXIDE 19 mmol/L (23-31); CHLORIDE 103 mmol/L (98-107); CREATININE, serum 1.16 mg/dL (0.72-1.25); GLUCOSE 115 mg/dL (70-99); LIPASE 179 U/L (8-78); SODIUM 136 mmol/L (136-145); TOTAL PROTEIN 8.5 gm/dL (6.2-8.1)
[2021-06-12 19:48] LABS: TROPONIN-I < 0.010 ng/mL (0.00-0.033)
[2021-06-12 21:40] VITALS: BP 117/70; PULSE 88
== END 2021-06-12 21:41 | disposition home or self-care (01) ==
LOC: COL.ER 18:10
PROVIDERS: Emergency Medicine
DX: R50.9 Fever, unspecified (principal); Z20.822 Contact with and (suspected) exposure to COVID-19
CPT/HCPCS: J7120

== ENCOUNTER 2021-06-27 11:33 | Emergency (ER) | payer MEDICARE ==
[~2021-06-27] VITALS: Ht 172.7 cm; Wt 75.9 kg
[2021-06-27 11:41] VITALS: TEMP 97.8
[2021-06-27 12:24] LABS: MEAN CELL VOLUME 82 fl (80.0-100.0); MEAN CORPUSCULAR HGB CONC 34 g/dl (33.0-37.0); MEAN PLATELET VOLUME 10.8 fl (7.4-10.4); PLATELET COUNT 431 K/mm3 (130-400); RED BLOOD COUNT 3.57 M/mm3 (4.20-5.60); REDCELL DISTRIBUTION WIDTH-CV 17.4 % (11.5-14.5)
[2021-06-27 12:27] LABS: HEMATOCRIT 29.2 % (42.0-52.0); HEMOGLOBIN 9.8 g/dl (13.5-18.0); MEAN CORPUSCULAR HEMOGLOBIN 27 pg (27-31)
[2021-06-27 12:35] LABS: ANISOCYTOSIS 1+; BAND 2 % (0-10); BASOPHIL 1 % (0-2); EOSINOPHIL 2 % (0-4); LYMPHOCYTE 5 % (20.0-51.0); NEUTROPHILS 82 % (42.0-75.2); PLATELET ESTIMATE INCREASED (NORMAL)
[2021-06-27 12:36] LABS: OVALOCYTES 1+
[2021-06-27 12:39] LABS: ALANINE AMINOTRANSFERASE 26 U/L (0-55); ALBUMIN 2.6 gm/dL (3.4-4.8); ALKALINE PHOSPHATASE 94 U/L (40-150); ANION GAP 12 mmol/L (7-16); AST,SGOT 21 U/L (5-34); BILIRUBIN,TOTAL 0.7 mg/dL (0.2-1.2); BLOOD UREA NITROGEN 13 mg/dL (8-26); CALCIUM 8.9 mg/dL (8.4-10.2); CARBON DIOXIDE 19 mmol/L (23-31); CHLORIDE 108 mmol/L (98-107); CREATININE, serum 1.19 mg/dL (0.72-1.25); GLUCOSE 110 mg/dL (70-99); LIPASE 19 U/L (8-78); POTASSIUM 3.6 mmol/L (3.5-4.5); SODIUM 139 mmol/L (136-145)
[2021-06-27 12:46] LABS: TROPONIN-I < 0.010 ng/mL (0.00-0.033)
[2021-06-27 12:57] LABS: BILIRUBIN,DIRECT 0.4 mg/dL (0.0-0.5)
[2021-06-27] MEDS ORDERED: PERCOCET 325 MG1 TA2 PO (14:24)
[2021-06-27] MEDS ORDERED: REGLAN 10MG10 MG/TAB PO (14:24)
[2021-06-27 14:45] VITALS: BP 141/74; PULSE 75
== END 2021-06-27 14:45 | disposition home or self-care (01) ==
LOC: COL.ER 11:33
PROVIDERS: Emergency Medicine
DX: D64.9 Anemia, unspecified (principal); M54.9 Dorsalgia, unspecified; R63.0 Anorexia; R19.02 Left upper quadrant abdominal swelling, mass and lump; Z90.49 Acquired absence of other specified parts of digestive tract
CPT/HCPCS: J2270; J2765; J3411; J7030; Q9967

== ENCOUNTER 2021-06-29 16:45 | Outpatient (CLI) | payer MEDICARE ==
[~2021-06-29] VITALS: Ht 172.7 cm; Wt 79.2 kg
[~2021-06-29 16:45] MED LIST changes: +PERCOCET 325 MG1 TA2 PO; +REGLAN 10MG10 MG/TAB PO
[2021-06-29 17:00] VITALS: BP 72/45; PULSE 85
[2021-06-29 17:15] VITALS: PULSE 85
[2021-06-29 18:20] VITALS: BP 88/58; PULSE 86; TEMP 97.5
--- NOTE | 2021-06-29 18:40 | NUR ---
Pt requests to go to ER after IV fluids infused.report called to VIPINCharge nurse.Pt transferred to ED #12 VIA WHEELCHAIR BY THIS NURSE.
== END 2021-06-29 18:43 ==
LOC: EUO 16:45
DX: E86.0 Dehydration (principal); R30.0 Dysuria
CPT/HCPCS: J7042

== ENCOUNTER 2023-04-06 14:02 | Day surgery (SDC) | payer MEDICARE ==
[~2023-04-06] VITALS: Ht 172.7 cm; Wt 81.1 kg
[~2023-04-06 14:02] MED LIST changes: +LR 1,000 ML IV SCH
[2023-04-06] MEDS ORDERED: SYNTHROID0.075 MG/T (14:18)
[2023-04-06] MEDS ORDERED: REMERON 15M15 MG/TA1 PO (14:23)
[2023-04-06] MEDS ORDERED: FLOMAX 0.40.4 MG/CAP PO (14:24)
[2023-04-06] MEDS ORDERED: NATURAL IRON65 MG (14:26)
[2023-04-06 15:10] VITALS: BP 149/78; PULSE 60; TEMP 97.1
--- NOTE | 2023-04-06 15:15 | NUR ---
1408 Pt ambulatory to bay 3 with a steady gait, breathing is even and unlabored. Pt is alert and oriented. Consents reviewed with and signed by pt. IV established. LR infusing via gravity at KVO. Call light in reach. Warm blanket provided.
[2023-04-06] MEDS ORDERED: Lidocaine PF 2% (20 MG/ML) 5 ML VIAL ONE (15:38)
[2023-04-06] MEDS ORDERED: Iohexol 350 - 100 ML VIAL BILE DUCT ONE (16:08)
[2023-04-06 16:30] VITALS: BP 139/71; PULSE 66; TEMP 97.6
[2023-04-06 16:45] VITALS: BP 142/83; PULSE 60
--- NOTE | 2023-04-06 17:07 | NUR ---
1630-PT ARRIVED VIA CART TO [facility] , PATIENT ALERT ON ARRIVAL. AMBULATED WITH ASSISTANCE TO RECLINER, WARM BLANKET PROVIDED. VITAL SIGNS TAKEN, VSS. PT DENIES PAIN OR NAUSEA. REPORT OBTAINED FROM ARLET GAR. UPDATE GIVEN TO PATIENT AND FAMILY AT BEDSIDE. 1645-VSS. PT TOLERATING PO INTAKE WITHOUT COMPLAINTS, DENIES PAIN OR NAUSEA. 1645-PROVIDER AT BEDSIDE. PROCEDURE FINDINGS EXPLAINED. 1700-DISCHARGE INSTRUCTIONS REVIEWED WITH PT, QUESTIONS INVITED. PATIENT CHANGED INTO CLOTHING INDEPENDENTLY. 1705-IV CATHETER DISCONTINUED, TIP INTACT. PRESSURE HELD AND BANDAGE APPLIED. 1725-PATIENT DISCHARGED HOME TO [facility] VIA WHEELCHAIR, ACCOMPANIED BY FAMILY. ALL BELONGINGS AND D/C PAPERWORK SENT WITH PT.
== END 2023-04-06 17:25 | disposition home or self-care (01) ==
LOC: SDCO 14:02
DX: K83.1 Obstruction of bile duct (principal); K83.8 Other specified diseases of biliary tract; R94.5 Abnormal results of liver function studies; K31.89 Other diseases of stomach and duodenum; K86.89 Other specified diseases of pancreas
CPT/HCPCS: C1769; J2704; J7120; Q9967

== ENCOUNTER → 2023-07-18 | Outpatient (CLI) | payer MEDICARE ==
[~2023-07-18] MED LIST changes: +FLOMAX 0.40.4 MG/CAP PO; -LR 1,000 ML IV SCH; +NATURAL IRON65 MG; +REMERON 15M15 MG/TA1 PO; +SYNTHROID0.075 MG/T
== END ==
LOC: COL.RAD 11:23
DX: G45.3 Amaurosis fugax (principal)

== ENCOUNTER 2023-10-06 12:22 | Day surgery (SDC) | payer MEDICARE ==
[~2023-10-06] VITALS: Ht 172.7 cm; Wt 86.8 kg
[~2023-10-06 12:22] MED LIST changes: +LR 1,000 ML IV SCH
[2023-10-06] MEDS ORDERED: ASPIRIN E.C. 8181 MG PO (12:40)
[2023-10-06 13:19] VITALS: BP 149/86; PULSE 61; TEMP 97.6
[2023-10-06] MEDS ORDERED: Lidocaine PF 2% (20 MG/ML) 5 ML VIAL ONE (13:41)
[2023-10-06] MEDS ORDERED: Glycopyrrolate 0.2 MG/ML 1 ML VIAL ONE (13:41)
[2023-10-06] MEDS ORDERED: Iohexol 350 - 100 ML VIAL BILE DUCT ONE (14:00)
[2023-10-06 14:17] VITALS: BP 135/81; PULSE 80
[2023-10-06 14:30] VITALS: BP 147/86; PULSE 72
--- NOTE | 2023-10-06 15:13 | NUR ---
PT RETURNED TO ROOM @ 1415. HAD WATER AND TOLERATED IT WELL. DR. AREVALO SAW PT AND TALKED TO HIM AT BEDSIDE @ 1453. IV REMOVED @ 1456. D/C INSTRUCTIONS GONE OVER WITH PT @ 1500. PT D/C'D @ 1510 WITH A FRIEND. PT DID NOT HAVE TO STAY LONG A TYPICAL ERCP HE HAS HAD THIS DONE PRIOR AND HAS A STENT IN PLACE ALREADY, PER DR. AREVALO.
== END 2023-10-06 15:10 | disposition home or self-care (01) ==
LOC: SDCO 12:22
DX: K86.9 Disease of pancreas, unspecified (principal); K31.89 Other diseases of stomach and duodenum; K83.1 Obstruction of bile duct; R94.5 Abnormal results of liver function studies; Z95.5 Presence of coronary angioplasty implant and graft; Z95.2 Presence of prosthetic heart valve; Z79.82 Long term (current) use of aspirin
CPT/HCPCS: C1769; J2704; J7120; Q9967

== ENCOUNTER 2024-01-11 16:46 | Inpatient (IN) | payer MEDICARE ==
[2024-01-11] VITALS (69 sets, daily range): BP systolic 76–96; BP diastolic 47–63; PULSE 88–109; TEMP 98.6; O2SAT 96–100
[~2024-01-11] VITALS: Ht 172.7 cm; Wt 90.1 kg
[~2024-01-11 16:46] MED LIST changes: -LR 1,000 ML IV SCH; +MASON NATURAL325 MG PO; -NATURAL IRON65 MG; -SYNTHROID0.075 MG/T
[2024-01-11] MEDS ORDERED: NS 1,000 ML IV ONE ×2 (17:00)
[2024-01-11] MEDS ORDERED: cefTRIAXone 1 G in Water For Injection,Sterile 10 ML IV ONE (17:15)
[2024-01-11] MEDS ORDERED: NS 500 ML IV ONE (17:15)
[2024-01-11 17:21] LABS: HEMOGLOBIN 12.2 g/dl (13.5-18.0); MEAN CELL VOLUME 93 fl (80.0-100.0); MEAN CORPUSCULAR HEMOGLOBIN 31 pg (27-31); MEAN CORPUSCULAR HGB CONC 33 g/dl (33.0-37.0); MEAN PLATELET VOLUME 12.5 fl (7.4-10.4); PLATELET COUNT 74 K/mm3 (130-400); RED BLOOD COUNT 3.98 M/mm3 (4.20-5.60); REDCELL DISTRIBUTION WIDTH-CV 15.4 % (11.5-14.5)
[2024-01-11 17:24] LABS: HEMATOCRIT 36.9 % (42.0-52.0)
[2024-01-11 17:38] LABS: ALBUMIN 3.2 g/dL (3.4-4.8); BILIRUBIN,TOTAL 7.4 mg/dL (0.2-1.2); CALCIUM 8.9 mg/dL (8.4-10.2); CREATININE, serum 3.45 mg/dL (0.72-1.25); POTASSIUM 3.4 mEq/L (3.5-4.5); TOTAL PROTEIN 6.8 g/dl (6.2-8.1)
[2024-01-11 18:25] LABS: BAND 24 % (0-10); LYMPHOCYTE 6 % (20.0-51.0); METAMYELOCYTE 2 % (0-0); NEUTROPHILS 60 % (42.0-75.2); PLATELET ESTIMATE DECREASED (NORMAL)
[2024-01-11 18:43] LABS: COLLECTION METHOD IN
[2024-01-11] MEDS ORDERED: ELOCON0.1% TP (18:57)
[2024-01-11 19:22] LABS: URINE APPEARANCE TURBID (CLEAR/HAZY); URINE BLOOD 2+ (NEGATIVE); URINE COLOR ORANGE (YELLOW); URINE GLUCOSE NEGATIVE (NEGATIVE); URINE KETONE NEGATIVE (NEGATIVE); URINE NITRATE POSITIVE (NEGATIVE); URINE PROTEIN(semi-quant) 3+ (NEGATIVE)
[2024-01-11] MEDS ORDERED: LR 1,000 ML IV SCH (19:30)
[2024-01-11] MEDS ORDERED: Ondansetron 4 MG/2 ML VIAL IV PRN (19:30)
[2024-01-11 19:42] LABS: SQUAMOUS EPITHELIAL 0-2 /hpf (0-10); URINE BACTERIA OCCASIONAL /hpf (NONE SEEN); URINE WBC 0-2 /hpf (0-2)
[2024-01-11] MEDS ORDERED: Famotidine 20 MG TAB PO SCH (21:00)
[2024-01-11] MEDS ORDERED: Albuterol/Ipratropium 3 MG-0.5 MG/3 ML Neb Soln IH PRN (21:45)
[2024-01-12] VITALS (744 sets, daily range): BP systolic 76–134; BP diastolic 44–81; PULSE 96–113; TEMP 97.5–98.7; O2SAT 81–100
[2024-01-12] MEDS ORDERED: Heparin 5,000 UNITS/ML 1 ML VIAL SQ SCH
--- NOTE | 2024-01-12 | NUR ---
PT REMAINS STABLE ON ROUNDS. WILL TITRATE LEVOPHED DOWN IF POSSIBLE. PT UP TO BSC. WILL SEND STOOL SPECIMAN IF PT HAS A BM. PT DENIES PAIN. NO NAUSEA OR VOMITING SINCE ADMISSION. CONTINUE PLAN OF CARE.
[2024-01-12 00:56] LABS: CLOSTRIDIUM DIFF A/B NEG
--- NOTE | 2024-01-12 05:20 | NUR ---
WEANING LEVOPHED. PT TOLERATING. TACHYCARDIC WITH PVC'S. WEANED OFF OXYGEN. O2 SAT'S 95-100% ON RA. NO C/O PAIN. NO NAUSEA. PT DOES HAVE LOOSE STOOLS. STABLE ON ROUNDS. CONTINUE PLAN OF CARE.
[2024-01-12 05:30] LABS: MEAN CELL VOLUME 91 fl (80.0-100.0); MEAN CORPUSCULAR HEMOGLOBIN 31 pg (27-31); MEAN CORPUSCULAR HGB CONC 34 g/dl (33.0-37.0); MEAN PLATELET VOLUME 13.2 fl (7.4-10.4); PLATELET COUNT 66 K/mm3 (130-400); RED BLOOD COUNT 3.54 M/mm3 (4.20-5.60); REDCELL DISTRIBUTION WIDTH-CV 15.6 % (11.5-14.5)
[2024-01-12 05:37] LABS: HEMATOCRIT 32.2 % (42.0-52.0)
[2024-01-12 05:48] LABS: ALBUMIN 2.7 g/dL (3.4-4.8); BILIRUBIN,TOTAL 6.2 mg/dL (0.2-1.2); CALCIUM 7.8 mg/dL (8.4-10.2); CREATININE, serum 3.58 mg/dL (0.72-1.25); POTASSIUM 3.9 mEq/L (3.5-4.5)
[2024-01-12 06:07] LABS: BAND 45 % (0-10); LYMPHOCYTE 4 % (20.0-51.0); METAMYELOCYTE 1 % (0-0); NEUTROPHILS 47 % (42.0-75.2); PLATELET ESTIMATE DECREASED (NORMAL)
[2024-01-12 06:08] LABS: ANISOCYTOSIS 1+
[2024-01-12] MEDS ORDERED: Influenza Virus Vaccine, Hi-Dose Triv '24-25 (65 YR+) 0.5 ML SYRINGE IM SCH (09:00)
--- NOTE | 2024-01-12 09:00 | NUR ---
Patient resting in bed; VS stable, however respirations are slighly tachypneic and taking shallow breaths. Denies feeling short of breath, but states that he just feels like he "needs" to breath fast. Lungs CTA in all jimenez. 02 97% on RA but placed on 2L 02 for comfort. Patient is also A&0 X 4 but does report having intermittent hallucinations. Is aware that these are not real. Hospitalist notified and feels it is just to the the severity of the infection. Will continue to monitor.
[2024-01-12 09:44] LABS: CHOLESTEROL RISK RATIO 4.2
--- NOTE | 2024-01-12 10:05 | NUR ---
Initial visit attempt; Patient resting, Turbogenerator Operator left a card letting patient know that [facility] offers Spiritual Care and let him know a Turbogenerator Operator is always available to listen and pray with patient and family.
[2024-01-12] MEDS ORDERED: Pantoprazole 40 MG in NS 10 ML IV SCH (11:49)
--- NOTE | 2024-01-12 12:41 | NUR ---
chore worker met with patient to discuss discharge planning. Patient lives near [place] by himself. Ihsan, son, P# [phone] is listed as patient's point of contact. SW asked if patient had any other children or if he had a DPOA-HC. Patient stated he has a daughter, Jud, and two boys that he has not been in contact with since . Patient stated he believes he has a DPOA-HC appointing Ihsan that should be at his PCP office. PCP is Dr. Katz, Pharmacy is [facility] in [facility]. No issues affording medications. No current DME but patient is currently on oxygen that he does not use at his baseline. Patient reports to be independent with ADLS and can transport himself to and from appointments. REED left a voicemail for Anali at [facility] regarding DPOA-HC. REED contacted Ihsan whom expressed he has a DPOA-HC but did not have it on him but could see if his can find it at their home. REED received a call back from Anali at [facility] whom reports patient does have a DPOA-HC on file appointing Ihsan with no secondary appointed. Patient also has a living will and addendum to the DPOA-HC. SW requested this to be faxed to their office. REED contacted Ihsan and notified him that they have located the DPOA-HC appointing him and it was to be faxed to them soon. REED obtained DPOA-HC, living will and addendum to DPOA-HC. REED placed this copy on patient's chart and notified patient's nurse. Discharge plan: pending medical status and PT/OT evaluations
[2024-01-12] MEDS ORDERED: Albuterol/Ipratropium 3 MG-0.5 MG/3 ML Neb Soln IH SCH (13:00)
--- NOTE | 2024-01-12 13:45 | NUR ---
Patient transported to endoscopy for ERCP procedure. Alert and oriented per baseline. VS stable.
[2024-01-12] MEDS ORDERED: Lidocaine PF 2% (20 MG/ML) 5 ML VIAL ONE (13:57)
--- NOTE | 2024-01-12 16:57 | NUR ---
Patient resting in bed; VS stable. Patient does report some wheezing which is audilble with a stethoscope. RT notified and requested a breathing treatment if available. Also had patient deep breath an cough. Hospitalist notified- fluids were reduced earlier in the shift due to slight shortness of breath. No new orders received at this time.
--- NOTE | 2024-01-12 19:58 | NUR ---
PT STOOLING EVERY 5 MIN. RECTAL TUBE PLACED. STOOL LIQUID AND PINK. WILL STAFF WITH HOSPITALIST REGARDING FREQUENT LIQUID STOOLS. PT ALSO WANTS SOMETHING FOR SLEEP. PT IS SATING 98-100 % ON 2L. OXYGEN DISCONTINUED TO PREVENT HYPEROXYGENATION. PT SATS ARE 94-100% ON RA. CONTINUE PLAN OF CARE.
--- NOTE | 2024-01-12 20:00 | NUR ---
PT VERBALIZED DIFFICULTY SLEEPING. VERBALIZED FRUSTRATION WITH FREQUENT STOOLS. DISCUSSED WITH PATIENT THAT STOOLS SHOULD FIRM UP IN 3-4 DAYS. INFORMED PT THAT I WOULD DISCUSS IT WITH THE PROVIDER. INFORMED PT THAT I WOULD ASK PROVIDER FOR A SLEEP AIDE FOR HIM. PT'S RESPIRATIONS HAVE DECREASED FROM THE 20'S TO THE TEENS SINCE O2 REMOVED. PT SATS ARE IN THE MID TO HIGH 90'S ON ROOM AIR. NO SIGN OF DISTRESS AT THIS TIME. CONTINUE PLAN OF CARE.
[2024-01-12] MEDS ORDERED: Melatonin 3 MG TAB PO PRN (21:15)
[2024-01-13] VITALS (1198 sets, daily range): BP systolic 93–112; BP diastolic 53–88; PULSE 90–99; TEMP 97.6–98.1; O2SAT 81–100
--- NOTE | 2024-01-13 | NUR ---
PT STATES HE IS HAVING TROUBLE SLEEPING. PT WAS GIVEN MELATONIN EARLIER IN THE SHIFT. PT'S URINARY OUT PUT IS LOW, BUT PT HAVING LIQUID STOOLS. VS STABLE. RESPIRATIONS EVEN AND UNLABORED. CONTINUE PLAN OF CARE.
--- NOTE | 2024-01-13 05:03 | NUR ---
CONTINUES TO HAVE LIQUID BLOOD TINGED STOOL. URINE OUTPUT REMAINS LOW. BLOOD PRESSURE SOFT, BUT MAP REMAINS GREATER THAT 65. RESPIRATIONS EVEN AND UNLABORED. NO SIGN OF DISTRESS AT THIS TIME. CONTINUE PLAN OF CARE.
[2024-01-13 05:53] LABS: HEMOGLOBIN 10.1 g/dl (13.5-18.0); MEAN CELL VOLUME 89 fl (80.0-100.0); MEAN CORPUSCULAR HEMOGLOBIN 31 pg (27-31); MEAN CORPUSCULAR HGB CONC 34 g/dl (33.0-37.0); MEAN PLATELET VOLUME 12.4 fl (7.4-10.4); REDCELL DISTRIBUTION WIDTH-CV 15.6 % (11.5-14.5)
[2024-01-13 05:59] LABS: HEMATOCRIT 29.4 % (42.0-52.0)
[2024-01-13 06:00] LABS: INR 1.2 (0.8-3.0); PLATELET COUNT 37 K/mm3 (130-400); PROTHROMBIN TIME 13.1 SECONDS (9.7-12.8)
[2024-01-13 06:09] LABS: ALBUMIN 2.4 g/dL (3.4-4.8); BILIRUBIN,TOTAL 6.6 mg/dL (0.2-1.2); CALCIUM 7.8 mg/dL (8.4-10.2); CREATININE, serum 4.93 mg/dL (0.72-1.25); MAGNESIUM 1.7 mg/dL (1.6-2.6); POTASSIUM 3.8 mEq/L (3.5-4.5); TOTAL PROTEIN 5.6 g/dl (6.2-8.1)
[2024-01-13 06:53] LABS: ANISOCYTOSIS 1+; BAND 10 % (0-10); LYMPHOCYTE 2 % (20.0-51.0); NEUTROPHILS 78 % (42.0-75.2); OVALOCYTES 1+; PLATELET ESTIMATE DECREASED (NORMAL)
--- NOTE | 2024-01-13 07:56 | NUR ---
PT IS RESTING IN THE BED. HE IS CURRENTLY GETTING A BREATHING TREATMENT. HE IS ALERT AND ORIENTED. HE HAS A CASTANO CATHETER DRAINING CLEAR YELLOW URINE AND A RECTAL TUBE DRAINING A PINK LIQUID STOOL. HE HAS NO OXYGEN NEEDS. A PICC LINE WITH FLUIDS INFUSING.
[2024-01-13] MEDS ORDERED: Loperamide 2 MG CAP PO ONE (11:30)
[2024-01-13] MEDS ORDERED: Loperamide 2 MG CAP PO PRN (11:30)
--- NOTE | 2024-01-13 12:30 | NUR ---
Data: Patient declined spiritual care visit offered during Bus System Operator rounds. Assessment: None at this time. Plan of Care: Chaplains will remain available as requested while Patient is admitted to this hospital.
[2024-01-14] VITALS (775 sets, daily range): BP systolic 100–122; BP diastolic 68–73; PULSE 82–88; TEMP 97.6–98.5; O2SAT 73–100
[2024-01-14 05:11] LABS: HEMOGLOBIN 10.1 g/dl (13.5-18.0); MEAN CELL VOLUME 87 fl (80.0-100.0); MEAN CORPUSCULAR HEMOGLOBIN 31 pg (27-31); MEAN CORPUSCULAR HGB CONC 35 g/dl (33.0-37.0); MEAN PLATELET VOLUME 12.6 fl (7.4-10.4); RED BLOOD COUNT 3.29 M/mm3 (4.20-5.60); REDCELL DISTRIBUTION WIDTH-CV 15.2 % (11.5-14.5)
[2024-01-14 05:19] LABS: HEMATOCRIT 28.6 % (42.0-52.0); PLATELET COUNT 40 K/mm3 (130-400)
[2024-01-14 05:34] LABS: ALBUMIN 2.1 g/dL (3.4-4.8); CREATININE, serum 5.95 mg/dL (0.72-1.25); POTASSIUM 3.7 mEq/L (3.5-4.5); TOTAL PROTEIN 5.6 g/dl (6.2-8.1)
[2024-01-14 06:00] LABS: BAND 5 % (0-10); LYMPHOCYTE 5 % (20.0-51.0); NEUTROPHILS 86 % (42.0-75.2); PLATELET ESTIMATE DECREASED (NORMAL)
[2024-01-14] MEDS ORDERED: Sodium Bicarbonate 650 MG TAB PO SCH (09:42)
--- NOTE | 2024-01-14 11:33 | NUR ---
PT IS RESTING IN THE BED. HE IS ALERT AND ORIENTED. FELT LIKE HE SLEPT WELL. IV FLUIDS INFUSIMG. CASTANO CATHETER IN PLACE. RECTAL TUBE IN PLACE. NO PAIN COMPLAINTS. NO OXYGEN NEEDS. HAS MORE OF A COUGH TODAY.
--- NOTE | 2024-01-14 21:36 | NUR ---
Patient resting quietly in bed watching TV. IVF infusing according to orders in EMAR. Laguna catheter and rectal tube to dependent drainage. Patient denies pain or discomfort. Vitals within normal limits; he remains on room air at this time, tolerating well.
[2024-01-15] VITALS (417 sets, daily range): BP systolic 111–131; BP diastolic 73–84; PULSE 82–101; TEMP 97.6–98.6; O2SAT 73–100
[2024-01-15 05:08] LABS: BASO # 0.1 K/mm3 (0.0-0.2); BASO % 0.5 % (0.0-2.0); EOS # 0.2 K/mm3 (0.0-0.7); EOS % 1.2 % (0.0-4.0); GRAN # 12.4 K/mm3 (1.4-6.5); GRAN % 85.2 % (42.2-75.2); HEMOGLOBIN 10.1 g/dl (13.5-18.0); LYMPH # 0.8 K/mm3 (1.2-3.4); LYMPH % 5.3 % (20.0-51.0); MEAN CELL VOLUME 86 fl (80.0-100.0); MEAN CORPUSCULAR HEMOGLOBIN 30 pg (27-31); MEAN CORPUSCULAR HGB CONC 35 g/dl (33.0-37.0); MEAN PLATELET VOLUME 12.3 fl (7.4-10.4); MONO % 6.8 % (1.7-9.3); RED BLOOD COUNT 3.33 M/mm3 (4.20-5.60); REDCELL DISTRIBUTION WIDTH-CV 15.3 % (11.5-14.5)
[2024-01-15 05:09] LABS: HEMATOCRIT 28.7 % (42.0-52.0)
[2024-01-15 05:10] LABS: PLATELET COUNT 41 K/mm3 (130-400)
[2024-01-15 05:27] LABS: ALBUMIN 2.1 g/dL (3.4-4.8); BILIRUBIN,TOTAL 3.9 mg/dL (0.2-1.2); CALCIUM 8.2 mg/dL (8.4-10.2); CREATININE, serum 7.05 mg/dL (0.72-1.25); MAGNESIUM 2.2 mg/dL (1.6-2.6); POTASSIUM 3.9 mEq/L (3.5-4.5); TOTAL PROTEIN 5.9 g/dl (6.2-8.1)
--- NOTE | 2024-01-15 08:49 | NUR ---
Patient laying in bed, restless/frustrated. He stated he did not sleep well last night, and has been thinking about what today will bring. Dialysis was mentioned to him as a short term solution, so that has him restless. Otherwise, afebrile, VSS. Adequte output, 450 reported overnight, 175 this morning at 08. Denies pain at time of assessment.
[2024-01-15] MEDS ORDERED: SODIUM CITRATE 4% ICA SCH (11:30)
[2024-01-15] MEDS ORDERED: NS 1,000 ML IV SCH (11:30)
[2024-01-15] MEDS ORDERED: FLUSH ICA SCH (11:30)
--- NOTE | 2024-01-15 11:33 | NUR ---
clean up worker attended clinical rounding and Dr. Grewal discussed the likelihood of pt needing diaylsis and also rehab. SW provided Medicare.gov list of SNF's and pt, son, Ihsan, and friend, Chhaya reports pt has been to both [facility] and [facility]. He was open to these again. SW discussed the potential of diaylsis being a barrier for these facilities, if they have too many diaylsis pt's and cannot accept. They will look into other options and inform REED. REED emailed SNF referral to [facility] and faxed to [facility]. Discharge Plan: SNF
--- NOTE | 2024-01-15 13:46 | NUR ---
REED was informed [facility] will continue to follow for stability and will see if he needs long-term diaylsis or just short, while in hospital. REED spoke with Cristi at [facility] who will continue to follow as well. Discharge Plan: SNF
--- NOTE | 2024-01-15 15:10 | NUR ---
Patient's procedure for temp HD cath has been pushed from 1430 to 1515. We also got a room upstairs in 308, so after procedure he will go to Medical to do Dialysis. all belongings gathered and he was escorted upstairs. Family notified of change.
--- NOTE | 2024-01-15 20:30 | NUR ---
Initial shift assessment done- VSS, alert/oriented x4 , pleasant, denies pain but says abd feels ?uncomfortable but not really pain/or nausea. Abd is rounded, somewhat firm with faint bowel sounds, does have rectal tube that has small amount liquid black/brown stool, Laguna to dependent drainage with clear yellow urine, edema to scrotum. Tele on, SR/ST at 100/min, SCD,s on, IV fluids of LR at 60cc/hr. Understands will be NPO after MN.
--- NOTE | 2024-01-15 22:10 | NUR ---
Repositioned, did decide to try the Zofran for his "uncomfortable abdomen syptoms",, given 4 mg Iv at this time.
[2024-01-15 23:54] LABS: HEPATITIS B CORE AB,TOTAL Negative (Negative); HEPATITIS B SURFACE ANTIGEN Negative (Negative)
[2024-01-15 23:55] LABS: HEPATITIS B SURFACE ANTIBODY <2.0 (()); HEPATITIS C VIRUS ANTIBODY Negative (Nonreactiv)
[2024-01-16] VITALS (7 sets, daily range): BP systolic 119–144; BP diastolic 75–88; PULSE 72–94; TEMP 97.9–98.3
--- NOTE | 2024-01-16 06:15 | NUR ---
Did have a small emesis this morning-- Zofran was given, pt states he is feeling better now- would like to get some sleep!
[2024-01-16 06:31] LABS: BASO # 0.1 K/mm3 (0.0-0.2); BASO % 0.5 % (0.0-2.0); EOS # 0.1 K/mm3 (0.0-0.7); EOS % 1.2 % (0.0-4.0); GRAN # 8.9 K/mm3 (1.4-6.5); LYMPH # 0.4 K/mm3 (1.2-3.4); MEAN CELL VOLUME 87 fl (80.0-100.0); MEAN CORPUSCULAR HGB CONC 35 g/dl (33.0-37.0); MEAN PLATELET VOLUME 12.7 fl (7.4-10.4); MONO # 1.2 K/mm3 (0.1-0.6); MONO % 10.8 % (1.7-9.3); RED BLOOD COUNT 3.26 M/mm3 (4.20-5.60); REDCELL DISTRIBUTION WIDTH-CV 15.6 % (11.5-14.5)
[2024-01-16 06:34] LABS: HEMATOCRIT 28.3 % (42.0-52.0); HEMOGLOBIN 9.9 g/dl (13.5-18.0); MEAN CORPUSCULAR HEMOGLOBIN 30 pg (27-31)
[2024-01-16 06:49] LABS: PLATELET COUNT 48 K/mm3 (130-400)
[2024-01-16 06:54] LABS: CALCIUM 8.1 mg/dL (8.4-10.2); CREATININE, serum 7.68 mg/dL (0.72-1.25); MAGNESIUM 2.4 mg/dL (1.6-2.6)
--- NOTE | 2024-01-16 10:00 | NUR ---
Assessment completed. Pt a/o x4. NPO for HD cath placment this morning. Sores around mouth noted. Rectal tube in place and draining dark brown liquid stool. Denies nausea. Laguna Cath to DD clear dion urine.
--- NOTE | 2024-01-16 12:25 | NUR ---
Patient to label cutter for HD placement with Leilani Goss RN. Pt to go to dialysis directly after prodecure. Leilani made aware. ARLET Fabian in dialysis also made aware.
--- NOTE | 2024-01-16 12:33 | NUR ---
SW attended clinical rounds. Clinical updates sent via secure email to CRISTIAN and Angelique Discharge plan: SNF
[2024-01-16] MEDS ORDERED: Midazolam 2 MG/2 ML VIAL IV SCH (12:50)
[2024-01-16] MEDS ORDERED: fentaNYL 50 MCG/ML 2 ML VIAL IV SCH (12:51)
[2024-01-16] MEDS ORDERED: Heparin 1,000 UNITS/ML 10 ML Multi-Dose VIAL IV SCH ×2 (12:55→12:58)
--- NOTE | 2024-01-16 13:00 | NUR ---
Report received from ARLET Duke. Leilani reports she will call dialysis nurse, Caren to give report and will then transport patient.
--- NOTE | 2024-01-16 13:20 | NUR ---
Michelet is transferred to inpatient dialysis after non-tunnelled dialysis catheter placement with Dr. Monterroso. Michelet is awake and alert, pwd with reg and unlabored respirations. BS report to Caren NICE.
[2024-01-16] MEDS ORDERED: SODIUM CHLORIDE NS PRN (15:30)
--- NOTE | 2024-01-16 15:35 | NUR ---
Dialysis Note Pt arrived to unit via Bed uf goal was set for 1.0 kg and 1 kg removed pt tolerated tx well and dcd without concerns
--- NOTE | 2024-01-16 15:46 | NUR ---
Pt returns to room from dialysis.
[2024-01-16] MEDS ORDERED: SODIUM CITRATE 4% ICA SCH (18:15)
[2024-01-16] MEDS ORDERED: FLUSH ICA SCH (18:15)
[2024-01-16] MEDS ORDERED: NS 1,000 ML IV SCH (18:15)
--- NOTE | 2024-01-16 18:55 | NUR ---
Rt IJ HD cath with dressing CDI. Pt denies pain or needs. Fall precautions in place. Report given to ARLET Vera.
--- NOTE | 2024-01-16 21:28 | NUR ---
PATIENT RESTING IN BED WATCHING TV. DENIES PAIN AT THIS TIME. PRESENTLY STABLE ON ROOM AIR. DENIES ANY NEEDS AT THIS TIME. CALL LIGHT WITHIN REACH. BED LOCKED AND IN LOW POSITION.
[2024-01-17] VITALS (7 sets, daily range): BP systolic 116–147; BP diastolic 73–83; PULSE 78–94; TEMP 97.6–99.1
[2024-01-17 06:04] LABS: MEAN CELL VOLUME 87 fl (80.0-100.0); MEAN CORPUSCULAR HGB CONC 35 g/dl (33.0-37.0); MEAN PLATELET VOLUME 12.8 fl (7.4-10.4); PLATELET COUNT 72 K/mm3 (130-400); RED BLOOD COUNT 3.01 M/mm3 (4.20-5.60); REDCELL DISTRIBUTION WIDTH-CV 15.5 % (11.5-14.5)
[2024-01-17 06:05] LABS: HEMATOCRIT 26.1 % (42.0-52.0); HEMOGLOBIN 9.1 g/dl (13.5-18.0); MEAN CORPUSCULAR HEMOGLOBIN 30 pg (27-31)
[2024-01-17 06:11] LABS: ALBUMIN 2.1 g/dL (3.4-4.8); BILIRUBIN,TOTAL 1.9 mg/dL (0.2-1.2); CALCIUM 7.8 mg/dL (8.4-10.2); CREATININE, serum 6.29 mg/dL (0.72-1.25); POTASSIUM 3.7 mEq/L (3.5-4.5); TOTAL PROTEIN 5.9 g/dl (6.2-8.1)
[2024-01-17 07:19] LABS: BAND 5 % (0-10); EOSINOPHIL 2 % (0-4); LYMPHOCYTE 9 % (20.0-51.0); METAMYELOCYTE 3 % (0-0); MYELOCYTE 2 % (0-0); NEUTROPHILS 73 % (42.0-75.2); PLATELET ESTIMATE DECREASED (NORMAL)
--- NOTE | 2024-01-17 08:10 | NUR ---
Assessment completed. Patient had some leakage of stool from his rectal catheter. Cares provided. Assisted patient to chair x2 assist with walker. Patient ate his breakfast while sitting up in chair- reports improved appetite this morning, eating 90% of meal. HD cath dressing to Rt IJ CDI. Pt denies SOA or pain. Report scant amount of phlegm with cough. Laguna DD dion clear urine. Sores to mouth still present- using ayr gel for dry nostrils and vaseline for sores on upper lip and mouth. Plan for dialysis later today.
--- NOTE | 2024-01-17 09:40 | NUR ---
Patient transferred to dialysis room via bed.
--- NOTE | 2024-01-17 11:43 | NUR ---
SW sent clinical updates to CRISTIAN and Angelique. SW following for possible hemodialysis if indicated. Discharge plan: SNF
--- NOTE | 2024-01-17 13:18 | NUR ---
HEMODIALYSIS COMPLETED WITH 2 LITERS REMOVED FOLLOWING B PROFILE VIA CRIT LINE. NO CONCERNS REPORTED. PT TOLERATED PROCEDURE WITHOUT DIFFICULTY.
--- NOTE | 2024-01-17 13:50 | NUR ---
Pt returns to room from dialysis. Denies pain or needs.
--- NOTE | 2024-01-17 16:41 | NUR ---
SW received consult to arrange for OP hemodialysis at [facility] per Dr. López. Referral form and clinical faxed to [facility]. SW met with patient and son in room to discuss referral process. Patient pending acceptance to SNF with updates sent to Angelique and CRISTIAN. Discharge plan: SNF with OP dialysis
--- NOTE | 2024-01-17 17:40 | NUR ---
Pt denies SOA, pain or needs at this time. Reports feeling overall improved after receiving dialysis yesterday and today. Rectal tube still in place and stool noted to be less liquid and starting to be semi soft and only 50ml when bag emptied this evening. Laguna output 350ml. Dialysis nurse changed HD cath dressing which is CDI. Fall precautions in place. Pt pleasant and cooperative.
--- NOTE | 2024-01-17 19:09 | NUR ---
Bedside report given to RM. Loni
--- NOTE | 2024-01-17 19:50 | NUR ---
Patient resting in bed. Denies any pain at this time. Needs met. Assessment compelte. PICC to right upper arm flushes easily with good blood return from both ports. Laguna and rectal tube draining properly. Call light and personal items in reach. Bed in low position and bed alarm on.
[2024-01-18] VITALS (11 sets, daily range): BP systolic 115–158; BP diastolic 68–85; PULSE 73–84; TEMP 98.4–99.4
[2024-01-18 05:49] LABS: HEMATOCRIT 25.2 % (42.0-52.0); HEMOGLOBIN 8.9 g/dl (13.5-18.0); MEAN CELL VOLUME 88 fl (80.0-100.0); MEAN CORPUSCULAR HEMOGLOBIN 31 pg (27-31); MEAN CORPUSCULAR HGB CONC 35 g/dl (33.0-37.0); MEAN PLATELET VOLUME 12.8 fl (7.4-10.4); PLATELET COUNT 93 K/mm3 (130-400); RED BLOOD COUNT 2.88 M/mm3 (4.20-5.60); REDCELL DISTRIBUTION WIDTH-CV 15.4 % (11.5-14.5)
[2024-01-18 06:07] LABS: CALCIUM 7.1 mg/dL (8.4-10.2); CREATININE, serum 5.06 mg/dL (0.72-1.25); POTASSIUM 3.5 mEq/L (3.5-4.5)
--- NOTE | 2024-01-18 08:20 | NUR ---
Assessment complete. Assist x1 to chair. Denies SOA, pain, nausea. Laguna DD clear dion urine. Rectal tube with minimal stool noted. Scrotum red and swollen. Mouth sores to mouth-pt using vaseline. Denies needs at this time.
--- NOTE | 2024-01-18 13:21 | NUR ---
Rectal tube removed- 30ml of air removed from balloon. Laguna discontinued with 8ml of air removed from balloon. Pt tolerated well. Ambulated SBA to BR and had small soft bowel movement. Waffle cushion placed on chair. Pt sitting up eating lunch at this time.
--- NOTE | 2024-01-18 15:33 | NUR ---
REED received call from [facility] accepting patient for admission on a TTS schedule at 1230. REED spoke with Jing at [facility] to inquire if they could accomodate this schedule. REED was told that [facility] cannot accept patient unless he is ESRD diagnosis. REED spoke with Cristi at [facility] who stated they can accept patient for admission but would require MWF schedule due to transportation schedule. [facility] informed SW that they do not have any MWF openings at the [facility] and would have to schedule patient in another clinic. REED in room to communicate this information to patient when Dr. López was present on video conference. Per Dr. López, he is hopeful that patient will not need OP dialysis. Dr. López stated to REED to hold off on finalizing OP dialysis and SNF details until Monday and he will determine if patient will require ongoing dialysis. Discharge plan: pending medical progress
--- NOTE | 2024-01-18 18:36 | NUR ---
Patient has been pleasant and cooperative. Sat up in chair most of the day. Has had a small bowel movement since removal of rectal tube and voided x1 since removal of rainey. Pt was instructed on importance of strict I/O and use of urinal to measure voids. Pt had voided in toliet when having a bowel movement- even with urinal within reach in the bathroom. Continues to use vaseline on mouth sores. Denies pain or needs at this time.
--- NOTE | 2024-01-18 19:55 | NUR ---
Patient resting in bed with friend at bedside. Denies any pain at this time. Needs met. Assessment complete. PICC in right upper arm flushes easily with good blood return from both ports. Patient states he has been unable to void yet. Feels like he might have to go to the bathroom later. Will bladder scan if unable to void. Call light and personal items in reach. Bed in low position and bed alarm on.
[2024-01-19] VITALS (10 sets, daily range): BP systolic 139–160; BP diastolic 83–93; PULSE 73–91; TEMP 98.1–98.6
[2024-01-19 07:26] LABS: ALBUMIN 2.4 g/dL (3.4-4.8); CALCIUM 7.8 mg/dL (8.4-10.2); CREATININE, serum 6.29 mg/dL (0.72-1.25); PHOSPHOROUS 4.8 mg/dL (2.3-4.7); POTASSIUM 3.5 mEq/L (3.5-4.5)
--- NOTE | 2024-01-19 08:00 | NUR ---
PATIENT RESTING IN BED UPON ENTERING ROOM. MORNING MEDICATIONS ADMINISTERED PER eMAR. SHIFT ASSESSMENT COMPLETED. PATIENT REPORTS SOME ACHING PAIN TO HIS ELBOWS, OTHERWISE NO COMPLAITS. PICC LINE FLUSHES AND HAS BLOOD RETURN. UPDATED ON PLAN OF CARE. BED ALARM IN PLACE, CALL LIGHT WITHIN REACH. WILL CONTINUE TO MONITOR.
[2024-01-19] MEDS ORDERED: Heparin 1,000 UNITS/ML 10 ML Multi-Dose VIAL IV SCH (08:45)
[2024-01-19] MEDS ORDERED: Heparin 1,000 UNITS/ML 10 ML Multi-Dose VIAL ICA SCH (08:45)
--- NOTE | 2024-01-19 12:23 | NUR ---
PATIENT RETURNED FROM DIALYSIS AT THIS TIME.
--- NOTE | 2024-01-19 12:54 | NUR ---
HEMODIALYSIS COMPLETED WITH 2.5L REMOVED FOLLOWING CRIT LINE REMOVAL ORDERED. NO NEW CONCERNS OR CHANGES IN STATUS. REPORTED.
--- NOTE | 2024-01-19 15:47 | NUR ---
SW met with patient to update on discharge planning. Patient is accepted to [facility] for TTS schedule at 1230. Patient is agreeable. Per therapy staff, patient is improving and no longer needing SNF placement for discharge and can discharge to home with HH. [email or web address] list of HH providers presented to patient. At this time, patient is stating that "I don't think I need that. I've got help when I go home." SW to follow up with patient on Monday to discuss recommendations. Discharge plan: Home with HH and OP dialysis
--- NOTE | 2024-01-19 20:00 | NUR ---
UPON SHIFT ASSESSMENT, PATIENT WAS AWAKE IN BED AND REQUESTED TO WALK UNIT. WALKED UNIT AND PATIENT USED GOOD EFFORT AND TOLERATED EXERCISE WELL. WHEN RETURNED TO ROOM, PATIENT VOIDED 400MLS NEREIDA , CLEAR URINE. PATIENT EXHIBITS PROFOUND FACIAL AND ORAL SCABS OF UNDIAGNOSED ORIGIN. NO INFLAMMATION OR ULCERATIONS NOTED INSIDE OF MOUTH, PATIENT DENIES DIFFICULTY SWALLOWING OR SOA. VS ARE WNL AND PATIENT DENIES NEEDS AT THIS TIME. CALL LIGHT WITHIN REACH AND BED ALARM ON.
[2024-01-20] VITALS (13 sets, daily range): BP systolic 136–153; BP diastolic 80–87; PULSE 73–98; TEMP 97.5–98.9
--- NOTE | 2024-01-20 01:37 | NUR ---
PICC LINED FLUSHED WITH GOOD BLOOD RETURN. PATIENT RESTING WITH EYES CLOSED. NO VISABLE SIGNS OF DISTRESS.
--- NOTE | 2024-01-20 05:28 | NUR ---
PATIENT REQUESTED TO WALK UNIT AGAIN-AMBULATED WITH GOOD EFFORT AND UPON RETURN TO ROOM, VOIDED 400MLS NEREIDA, CLEAR URINE. VS ARE WNL, STATES NO OTHER NEEDS, AND DENIES PAIN.
[2024-01-20 06:11] LABS: MEAN CELL VOLUME 90 fl (80.0-100.0); MEAN CORPUSCULAR HGB CONC 34 g/dl (33.0-37.0); MEAN PLATELET VOLUME 11.9 fl (7.4-10.4); PLATELET COUNT 134 K/mm3 (130-400); RED BLOOD COUNT 2.78 M/mm3 (4.20-5.60); REDCELL DISTRIBUTION WIDTH-CV 15.4 % (11.5-14.5)
[2024-01-20 06:15] LABS: HEMOGLOBIN 8.4 g/dl (13.5-18.0); MEAN CORPUSCULAR HEMOGLOBIN 30 pg (27-31)
[2024-01-20 06:16] LABS: HEMATOCRIT 24.9 % (42.0-52.0)
[2024-01-20 06:35] LABS: CALCIUM 7.1 mg/dL (8.4-10.2); CREATININE, serum 5.49 mg/dL (0.72-1.25); POTASSIUM 3.3 mEq/L (3.5-4.5)
--- NOTE | 2024-01-20 09:30 | NUR ---
PATIENT RESTING IN BED. MORNING MEDICATIONS ADMINISTERED PER eMAR. DENIES ANY PAIN OR NEEDS. PICC LINE FLUSHES AND HAS BLOOD RETURN. UPDATED ON PLAN. CALL LIGHT WITHIN REACH. WILL CONTINUE TO MONITOR.
--- NOTE | 2024-01-20 10:12 | NUR ---
THIS RN NOTIFIED BY PT THE HE TOOK THE BED ALARM OFF OF PATIENTS BED AND TOLD THE PATIENT HE COULD AMBULATE INDEPENDENTLY. THIS RN CHANGED THE PATIENT TO LOW RISK FOR FALLS. WILL CONTINUE TO MONITOR.
[2024-01-20] MEDS ORDERED: Carvedilol 3.125 MG TAB PO SCH (13:36)
[2024-01-21] VITALS (17 sets, daily range): BP systolic 130–150; BP diastolic 74–84; PULSE 62–80; TEMP 97.7–99.2
[2024-01-21 06:29] LABS: MEAN CELL VOLUME 91 fl (80.0-100.0); MEAN CORPUSCULAR HGB CONC 33 g/dl (33.0-37.0); PLATELET COUNT 168 K/mm3 (130-400); RED BLOOD COUNT 2.65 M/mm3 (4.20-5.60); REDCELL DISTRIBUTION WIDTH-CV 15.6 % (11.5-14.5)
[2024-01-21 06:36] LABS: CREATININE, serum 6.24 mg/dL (0.72-1.25); HEMATOCRIT 24.2 % (42.0-52.0); MEAN CORPUSCULAR HEMOGLOBIN 30 pg (27-31); POTASSIUM 3.4 mEq/L (3.5-4.5)
--- NOTE | 2024-01-21 08:23 | NUR ---
PATIENT RESTING IN BED UPON ENTERING ROOM. MORNING MEDICATIONS ADMINISTERED PER eMAR. SHIFT ASSESSMENT COMPLETED. PATIENT DENIES ANY PAIN. PICC LINE FLUSHES AND HAS BLOOD RETURN. UPDATED ON PLAN FOR TODAY. CALL LIGHT WITHIN REACH. WILL CONTINUE TO MONITOR.
[2024-01-21] MEDS ORDERED: Heparin 1,000 UNITS/ML 10 ML Multi-Dose VIAL ICA SCH (11:30)
[2024-01-21] MEDS ORDERED: Heparin 1,000 UNITS/ML 10 ML Multi-Dose VIAL IV SCH (11:30)
[2024-01-22] VITALS (9 sets, daily range): BP systolic 131–160; BP diastolic 76–87; PULSE 67–79; TEMP 98.2–98.4
--- NOTE | 2024-01-22 08:00 | NUR ---
PATIENT RESTING IN BED UPON ENTERING ROOM. MORNING MEDICATIONS HELD DUE TO NPO STATUS. PATIENT DENIES ANY PAIN OR NEEDS AT THIS TIME. UPDATED ON PLAN FOR THE DAY. CALL LIGHT WITHIN REACH. WILL CONTINUE TO MONITOR.
--- NOTE | 2024-01-22 09:22 | NUR ---
SEE MERGE FOR PROCEDURE DOCUMENTATION
[2024-01-22] MEDS ORDERED: ceFAZolin 1 G in Water For Injection,Sterile 10 ML IV SCH (09:41)
[2024-01-22] MEDS ORDERED: Lidocaine 2% w EPI (1:100,000) 20 ML Multi-Dose VIAL IJ SCH (09:42)
[2024-01-22] MEDS ORDERED: fentaNYL 50 MCG/ML 2 ML VIAL IV SCH (09:43)
[2024-01-22] MEDS ORDERED: Midazolam 2 MG/2 ML VIAL IV SCH (09:47)
[2024-01-22] MEDS ORDERED: Heparin 1,000 UNITS/ML 10 ML Multi-Dose VIAL ICA SCH (09:48)
--- NOTE | 2024-01-22 10:10 | NUR ---
PATIENT ARRIVED BACK ON UNIT AT THIS TIME. VSS STABLE. PATIENT DENIES ANY PAIN. CALL LIGHT WITHIN REACH. DRESSINGS APPEAR C/D/I. PATIENT UPDATED ON PLAN OF CARE. WILL CONTINUE TO MONITOR. THIS RN CONTACTED [facility], AND NOTIFIED HER OF PATIENT RETURN. SHE STATED SHE WILL DO HIS DIALYSIS TO FOLLOW HER CURRENT PATIENT.
--- NOTE | 2024-01-22 10:18 | NUR ---
PT TOLERATED PROCEDURE WELL, VSS. PATIENT TRANSFERRED TO BED INDEPENDENTLY AND TRANSPORTED TO [facility]. TRANSFER OF CARE REPORT TO ARLET MANCINI. VITAL SIGNS TAKEN ON ARRIVAL.
--- NOTE | 2024-01-22 12:37 | NUR ---
REED attended clinical rounds. Patient to receive dailysis catheter today. REED spoke with Dr. López who states patient will receive dialysis treatment today and can discharge to home. REED called [facility] to confirm patient's dialysis schedule which is TTS at 1230 to start tomorrow, Monday in clinic. REED met [facility] patient to review plan for discharge later today after his dialysis treatment. Patient continues to decline HH services and states his son, ex and other family are available to assist him if needed. Patient instructed to discuss any needs with his PCP at follow up appointment. Discharge plan: Home with OP dialysis
[2024-01-22] MEDS ORDERED: ZOVIRAX 200MG200 MG PO (13:09)
--- NOTE | 2024-01-22 16:56 | NUR ---
DISCHARGE INSTRUCTIONS REVIEWED, ALL QUESTIONS ANSWERED. PATIENT IS WAITING FOR SON TO ARRIVE TO DISCHARGE HOME.
--- NOTE | 2024-01-22 17:57 | NUR ---
PATIENT ESCORTED OFF OF UNIT BY VIA PRINCESS STAFF. LEFT VIA PRIVATE VEHICLE WITH SON.
== END 2024-01-22 17:57 | disposition home or self-care (01) | DRG 871 ==
LOC: COL.ER 16:46 → ICU 19:46 → MEDICAL 01-15 15:19
PROVIDERS: Internal Medicine; Internal Medicine Nephrology; Personal Emergency Response Attendant; Physician Assistant; ADMIT Internal Medicine
PROC: 0JH63XZ Insertion of Tunneled Vascular Access Device into Chest Subcutaneous Tissue and Fascia, Percutaneous Approach (ICD-10-PCS; principal; 2024-01-16)
PROC: 02HV33Z Insertion of Infusion Device into Superior Vena Cava, Percutaneous Approach (ICD-10-PCS; 2024-01-16)
DX: A41.9 Sepsis, unspecified organism (principal); N17.0 Acute kidney failure with tubular necrosis; E87.20 Acidosis, unspecified; R44.3 Hallucinations, unspecified; K80.30 Calculus of bile duct with cholangitis, unspecified, without obstruction; B00.89 Other herpesviral infection; G72.81 Critical illness myopathy; R65.20 Severe sepsis without septic shock; E78.5 Hyperlipidemia, unspecified; R79.89 Other specified abnormal findings of blood chemistry; E03.9 Hypothyroidism, unspecified; Z79.890 Hormone replacement therapy; I12.9 Hypertensive chronic kidney disease with stage 1 through stage 4 chronic kidney disease, or unspecified chronic kidney disease; I25.10 Atherosclerotic heart disease of native coronary artery without angina pectoris; D13.6 Benign neoplasm of pancreas; D63.1 Anemia in chronic kidney disease; N18.30 Chronic kidney disease, stage 3 unspecified; R19.7 Diarrhea, unspecified; D69.6 Thrombocytopenia, unspecified; R19.5 Other fecal abnormalities; B00.9 Herpesviral infection, unspecified
CPT/HCPCS: A4314; A9284; C1751; C1769; J0690; J0696; J1644; J2250; J2405; J2470; J2543; J2704; J3010; J7030; J7040; J7060; J7120; P9016; Q3014